=== PATIENT | male | born 1985 | race Caucasian/White ===

== ENCOUNTER 2025-01-28 10:33 | Emergency (ER) | payer MEDICARE, MEDICAID, SELFPAY ==
--- OUTSIDE RECORDS SUMMARY | 2025-01-26 09:40 | XMS_ITS | Encounter Summary ---
Author Organization [employer] Address [address] [place] [address] [facility] [place] [address] Care Team Providers Care Insurance Sales Specialist Name Role Phone Ana Armando MD Primary Care Provider [phone] Madai Swift MD Unavailable [phone] Lavinia Cagle ROTARY SHEAR OPERATOR Unavailable [phone] Peter Linares RN Unavailable Isadora Mcnamara RN Unavailable [phone] Luis García RN Unavailable Unavailable EstefaniWhitney COMPLEX CARE NURSE Unavailable [phone] Reason for Referral * Imaging (Routine) - Pending Review Specialty Diagnoses / Procedures Referred By Lc murphy Referred To Contact Radiology Diagnoses Frequent falls Sudden onset of severe headache Procedures CT Head w/o Contrast Ana Armando MD [address] [place] [address] Phone: tel: fax: Referral ID Status Reason Start Date Expiration Date V isits Requested Visits Authorized [id number] Pending Review 01/26/2025 01/26/2026 1 1 Reason for Visit * Reason Comments Dizziness Encounter Details Date Type Department Care Team ([facility] st Contact Info) Description 01/26/2025 9:40 AM EDT [address] [address] Ana Armando MD [address] [place] [address] Vertigo (Primary Dx); Frequent falls; Sudden onset of severe headache; Nausea Social History Tobacco Use Types Packs/Day Years Used Date Smoking Tobacco: Never Smokeless Tobacco: Never Alcohol Use Standard Drinks/Week Comments Never 0 (1 standard drink = 0.6 oz pur e alcohol) Depression Answer Date Recorded PHQ-9 Score 1 08/25/2024 Patient Health Questionnaire-9 Score 16 08/25/2024 Last PHQ-9: Questionnaire Data 1 0 08/25/2024 Housing Stability Answer Date Recorded What is your housing situation today? I am not s ure 03/10/[address] you li ve. Do you have problems with any of the following? I am not sure 03/10/2024 Food Insecurity Answer Date Recorded Within the past 12 months, y ou worried that your food would run out before you got money to buy more: Sometimes True 2023 Within the past 12 months,th e food you bought just didn't last and you didn't have enough money to get more: Sometimes True 03/10/2024 Transportation Answer Date Recorded In the past 12 months, has l ack of transportation kept you from medical appts, meetings, work or from getting things needed for daily living? I am not sure 02/25/2023 Utilities Answer Date Recorded In the past 12 months, has t he electric, gas, oil or water company threatened to shut off services in your home? I am not sure 03/10/2024 Depression Answer Date Recorded Patient Health Questionnaire-2 Score 1 08/25/2024 Internet Access Answer Date Recorded Internet Access Q1 I am not sure 03/10/2024 Internet Access Q2 Not on file 03/10/2024 Sex and Gender Information Value Date Recorded Sex Assigned at Male 05/14/2022 4:21 PM EST Legal Sex Male 4:09 PM EST Gender Identity Male 05/14/2022 4:16 PM EST Sexual Orientation Straight 05/15/2022 2: 26 PM EST documented as of this encounter Progress Notes * Ana Armando MD - 01/26/2025 9:40 AM EDT [facility] TELEHEALTH VISIT Name: Timothy Kramer : 1985 PCP: Ana Armando MD Pt Preferred Language: Citizen Of [place] [employer]im[employer] Services Used? No - Visit conducted in pt's language by this author REASON FOR TELEMEDICINE VISIT Chief Complaint Patient presents with Dizziness This visit was completed by: Telephone (Patient is not capable of or does not consent to the use ofvideo) HPI/ROS Timothy Kramer is a 39 y.o. male who would like to discuss Dizziness He is having symptoms of vertigo and headache He also get nauseas He has hope da headache for 3 days He has falls due to headache No ear pain No hearing loss He feels tired and nausea. He has a family history of headache, falls then this was a cancer in his mom. Review of Systems Physical Exam RESULTS (12 week lookback) No results found for this or any previous visit (from the past 12 weeks). SCREENINGS AND HM PHQ-2/9: No data recorded KARTHIKEYAN-7 Score: No data recorded Health Maintenance Due Topic Date Due HPV Vaccines (1 - Male 3-dose series) Never done Influenza Vaccine (1) 12/27/2024 COVID-19 Vaccine ( - season) 2024 Depression Monitoring 02/24/2025 SDOH Screening 03/10/2025 ASSESSMENT AND PLAN Assessment & Plan Vertigo New onset headache, vertigo, nause - I suspect migraine vs BPPV Will start treatment with oral and patch treatment for symptom control. Orders: scopolamine (Transderm-Scop) 1 MG/3DAYS patch 72 hour; Place 1 patch on the skin every 3rd (third) day. meclizine (Antivert) 25 MG tablet; Take 1 tablet (25 mg) by mouth if needed in the morning, at noon, and at bedtime for dizziness for up to 10 days. Frequent falls Orders: CT Head w/o Contrast; Future Sudden onset of severe headache Severe headache that wakes him up at night, he hope sa fam history of brain tumors. Will get CT of the head to r/o mass effect or hydrocephalous Orders: CT Head w/o Contrast; Future Nausea Orders: ondansetron ODT (Zofran-ODT) 8 MG disintegrating tablet; Take 1 tablet (8 mg) by mouth every 8 (eight) hours if needed for nausea or vomiting. No follow-ups on file. This visit lasted: 30 min Ana Armando MD 01/26/2025 documented in this encounter Miscellaneous Notes * Assessment & Plan Note - Ana Armando MD - 01/26/2025 9:40 AM EDTAssociated Problem(s): Frequent falls Orders: CT Head w/o Contrast; Future documented in this encounter Plan of Treatment Scheduled Orders Name Type Priority Associated Diagnoses Orde r Schedule CT Head w/o Contrast Imaging Routine Frequent falls Sudden onset of severe headache Expected: 01/26/2025 (Approximate), Expires: 01/26/2026 documented as of this encounter Goals Goal Patient Goal Type Associated Problems Recent Progress Patient-Stated? Author obtain housing in [facility] General Yes Ly Pal RN food assistance General Yes Ly Pal RN help with social security application General Yes Ly Pal RN obtain podiatry appt General Yes Ly Pal RN documented as of this encounter Visit Diagnoses Diagnosis Vertigo- Primary Dizziness and giddiness Frequent falls Sudden onset of severe headache Nausea Nausea alone documented in this encounter Additional Health Concerns Assessment Noted Time PHQ-9 Depression Total Score: 18 09/06/ 024 1:14 PM EDT documented as of this encounter Care Teams Insurance Sales Specialist Relationship Specialty Start Date End Date Ana Armando MD [address] [place] [address] PCP - General Family Medicine 02/13/24 Madai Swift MD [address] [place] [address] Family Physician Family Medicine 07/30/24 Lavinia Cagle CNP [address] [place] [address] Nurse Practitioner Family Medicine 07/30/24 Peter Linares, KARY [address] [place] [address] Registered Nurse 07/30/24 Isadora Mcnamara RN [address] [place] [address] Registered Nurse 07/30/24 Luis García, KARY Registered Nurse Family Medicine 07/30/24 Whitney Jara FNP [address] [place] [address] Nurse Practitioner Family Medicine 07/30/24 documented as of this encounter
--- NOTE | ~2025-01-28 | CT_ITS ---
EXAMINATION: CT HEAD WITHOUT CONTRAST CLINICAL INFORMATION: Headache and dizziness. COMPARISON: None available. TECHNIQUE: Contiguous axial imaging was performed from the skull base to vertex without intravenous administration of contrast. This CT examination was performed using dose optimization techniques as appropriate, variously including the following: *Automated exposure control *Adjustment of mA and/or kV according to patient size (this includes techniques or standardized protocols for targeted exams where dose is matched to indication/reason for exam; i.e. extremities or head) *Use of iterative reconstruction technique FINDINGS: There is no evidence of intracranial hemorrhage or extra-axial fluid collection. There is no mass effect, or edema. No CT evidence of acute territorial infarct. Ventricles, sulci, and cisterns are normal in size and configuration for patient age. No hydrocephalus. No midline shift. Negative hyperdense MCA sign. Negative insular ribbon sign. There are no white matter attenuation abnormalities. Normal pituitary. Globes and orbital contents image normally. No extracranial soft tissue abnormalities. Mild to moderate scattered mucosal thickening in the ethmoid sinuses. The remainder of the paranasal sinuses, mastoid air cells, and tympanic cavities are normally aerated. No suspicious bony abnormalities. There are no acute fractures evident. CT/CT head/brain wo IV con IMPRESSION: No acute intracranial abnormality. Electronically signed by: Kel Richardson MD 01/28/2025 11:57 AM EDT
[2025-01-28 10:43] VITALS: BP 125/73; PULSE 76; RESP 16; TEMP 36.4; O2SAT 97; BMI 28.8
--- NOTE | 2025-01-28 10:45 | ED.GENADULT ---
HPI - General Adult General Chief complaint: Dizziness Stated complaint: Syncope Time Seen by Provider: 01/28/25 11:57 History of Present Illness ED Provider: Gilbert LEE narrative: The patient is a 39-year-old male with no significant past medical history who says that for the past 3 days he has felt a sense of severe room spinning dizziness whenever he tries to move around. He has had a headache associated with this. No fever. No focal numbness or weakness in his extremities. No bowel or bladder control symptoms. No visual symptoms. No trauma. 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 He commutes from [place]. Related Data Previous Rx's ?Medication ?Instructions ?Recorded acetaminophen 500 mg capsule 1,000 mg (2 x 500 mg) PO Q8H PRN 01/28/25 fever or pain #14 caps ibuprofen 400 mg tablet 400 mg PO Q6H PRN pain #14 tabs 01/28/25 meclizine 25 mg tablet 25 mg PO TID PRN dizziness #20 tabs 01/28/25 ondansetron 4 mg disintegrating 4 mg PO Q6H PRN nausea and 01/28/25 tablet vomiting #10 tabs Allergies Allergy/AdvReac Type Severity Reaction Status Date / Time No Known Allergies Allergy Verified 01/28/25 10:46 Review of Systems Review of Systems: Yes all other systems are reviewed and are negative Physical Exam ED Vital Signs: Vital Signs - 24 hr 01/28/25 10:43 01/28/25 12:06 01/28/25 12:58 Temperature 97.6 F 98.2 F Pulse Rate 76 64 64 Respiratory Rate 16 Blood Pressure 125/73 120/78 114/72 Pulse Oximetry 97 98 Oxygen Delivery Method Room Air Room Air 01/28/25 12:58 01/28/25 12:59 01/28/25 14:49 Temperature Pulse Rate 70 69 69 Respiratory Rate Blood Pressure 111/69 108/78 108/78 Pulse Oximetry 95 Oxygen Delivery Method 01/28/25 16:05 Temperature 98.7 F Pulse Rate 69 Respiratory Rate 16 Blood Pressure 108/78 Pulse Oximetry 95 Oxygen Delivery Method Room Air BMI result Body Mass Index 28.8 Const Other: The patient is a 39-year-old male. He looks as though he is ordinarily healthy. He looks somewhat apprehensive but not in acute distress. HENMT Other: Face is symmetrical. Tongue is midline. Mucous membranes moist. Posterior pharynx is normal. Eyes General: appearance normal, both eyes and all related structures Visual Hammond: normal visual hammond by confrontation Alignment and Position: alignment normal Eyelids: Yes eyelids normal Conjunctivae: conjunctivae normal Sclerae: sclerae normal Pupils: Equal, round and reactive pupils present EOM: EOMs intact bilaterally (Possibly some slight nystagmus with leftward gaze.) Neck Neck: Yes normal visual inspection, Yes full ROM and Yes no lymphadenopathy Resp Effort & Inspection: normal respiratory effort Auscultation: clear to auscultation bilaterally Cardio Rate: regular rate Rhythm: regular rhythm Heart sounds: S1 normal heart sound present and S2 normal heart sound present GI Other: Abdomen is soft and nontender Skin Other: The skin is dry and unremarkable Neuro Other: The patient is awake and alert with a normal mental status. Pupils are round, equal, and reactive to light, extraocular movements are intact although there may be some slight nystagmus with leftward gaze. No vertical nystagmus. Visual hammond are intact to confrontation. Face is symmetrical. No facial droop. Tongue is midline. Speech is normal and appropriate. He has 5/5 strength in all 4 extremities. Finger-nose is normal. Heel-barron is normal. The patient seems to be experiencing significant dizziness when he changes position however. With the Greg-Hallpike maneuver he seemed to experience symptoms when his head was turned to the left. Cranial nerves: Yes Equal, round and reactive pupils present Extrem Other: There is no calf swelling or tenderness. No asymmetry. No peripheral edema. Course Course Course Narrative: This is a rapid medical exam performed by Fariba Giles NP: Additional HPI, ROS, PE not included below will be deferred to primary provider. Patient is a 39y/o M presenting from for evaluation of headache and constant dizziness x 3 days, fell yesteday due to dizziness. States mother had sudden due to either aneurism or brain tumor. Plan: CT head, EKG, labs Medications Administered Discontinued Medications Generic Name Dose Route Start Last Admin Trade Name Freq PRN Reason Stop Dose Admin Acetaminophen 975 mg 01/28/25 12:41 01/28/25 12:52 Acetaminophen 325 Mg Tablet PO 01/28/25 12:42 975 mg ONCE ONE Administration Ibuprofen 400 mg 01/28/25 12:41 01/28/25 12:52 Ibuprofen 400 Mg Tablet PO 01/28/25 12:42 400 mg ONCE ONE Administration Medical Decision Making Medical Decision Making [facility] Narrative: The patient is a 39-year-old male who presents with a proximally 3 days of room spinning dizziness which is provoked by changes in movement of his head. Clinically this seems to be a case of benign positional vertigo. He has a negative head CT. Other labs are unremarkable. Vital signs are unremarkable. I consulted Physical therapy regarding a case of what I suspected as positional vertigo. Physical therapy administered Liban maneuvers to the patient. He has had improvement in his symptoms. He was feeling able to walk. He will be discharged. I have given the physical therapist a handwritten prescription for outpatient physical therapy for this vertigo syndrome. The patient will be given the contact information for outpatient physical therapy. I do not know if this prescription order will be considered valid. The patient has a primary care doctor in the [facility]. He is encouraged to contact his PCP for an order as an outpatient as well. Also for follow up. The patient will be discharged additionally with a prescriptions for ibuprofen and acetaminophen for his headache, ondansetron for any nausea, and also meclizine. He should return if worse. Lab Data 01/28/25 10:57 01/28/25 10:57 Labs: Lab Results 01/28/25 01/28/25 Range/Units 10:57 13:01 WBC 9.5 (4.8-10.8) X10*3/uL RBC 5.27 (4.60-5.80) X10*6/uL Hgb 12.4 L (14.0-18.0) g/dl Hct 38.2 L (42.0-52.0) % MCV 72.5 L (80.0-98.0) fL MCH 23.5 L (27.0-33.0) pg MCHC 32.5 (31.0-36.0) g/dl RDW 16.0 (11.0-16.0) % Plt Count 196 (160-400) X10*3/uL MPV 10.8 (9.4-12.4) fL Immature Gran % (Auto) 1.7 H (0.0-0.4) % Neut % (Auto) 67.1 (45-73) % Lymph % (Auto) 20.1 (20-40) % [place] % (Auto) 7.4 (2-11) % Eos % (Auto) 3.2 (0-4) % Baso % (Auto) 0.5 (0-2) % Lymph # (Auto) 1.9 (1.2-4.9) X10*3/uL [place] # (Auto) 0.7 (0.1-1.2) X10*3/uL Eos # (Auto) 0.3 (0.0-0.4) X10*3/uL Baso # (Auto) 0.1 (0.0-0.2) X10*3/uL Abs Immat Gran (auto) 0.16 H (0.00-0.03) X10*3/uL Absolute Neuts (auto) 6.3 (2.0-8.3) x10*3/uL Absolute Nucleated RBC 0.000 (0.0-0.012) X10*3/uL Nucleated RBC % (auto) 0.0 (0.0-0.2) /100WBC PT 11.8 (10.9-12.4) SEC INR 1.0 (0.9-1.1) Sodium 140 (135-145) mmol/L Potassium 3.9 (3.3-5.1) mmol/L Chloride 111 H (96-108) mmol/L Carbon Dioxide 24 (22-29) mmol/L Anion Gap 9 L (12-20) BUN 15 (9-16) mg/dL Creatinine 0.80 (0.5-1.4) mg/dL Estim Creat Clear Calc 139.1 Estimated GFR > 60 Random Glucose 96 (60-115) mg/dL Calcium 8.5 (8.4-10.2) mg/dL Magnesium 2.3 (1.6-2.6) mg/dL Total Bilirubin 0.7 (0.0-1.0) mg/dL AST 20 (5-37) U/L ALT 17 (0-40) U/L Alkaline Phosphatase 55 (39-117) U/L Troponin I High Sens < 2.7 (<3.5-35.0) ng/L Total Protein 7.1 (6.5-8.0) g/dL Albumin 4.5 (3.5-5.0) g/dL Urine Color Yellow Urine Appearance Clear Urine pH 5.5 (5.0-9.0) Ur Specific [place] 1.010 (1.005-1.025) Urine Protein Negative (Neg-Trace) mg/dL Urine Glucose (UA) Negative (Negative) mg/dL Urine Ketones Negative (Negative) mg/dL Urine Blood Negative (Negative) Urine Nitrite Negative (Negative) Ur Leukocyte Esterase Negative (Negative) Urine RBC 0-2 (0-2) /HPF Urine WBC 0-5 (0-5) /HPF Ur Squamous Epith Cells 0-2 (0-2) /HPF Urine Bacteria None Seen (None Seen) Hyaline Casts 0-2 (0-2) /LPF Independent Interpretation I performed an independent interpretation of an: EKG Interpretation: EKG at 1051 shows normal sinus rhythm at 71 beats per minute. it is a normal EKG Discharge Plan Discharge Clinical Impression: Benign paroxysmal positional vertigo Patient Disposition: Home, Self-Care Instructions: Vertigo (ED) Additional Instructions: I believe you have a condition that we call benign paroxysmal positional vertigo. This is a dysfunction of a portion of the inner ear. The inner ear is the body's gyroscope. Your CAT scan of the head was normal. You were seen by physical therapy. You were put through maneuvers intended to improve your vertigo. You may need additional care from physical therapy. An order has been placed with our physical therapy office which I hope will be considered valid for insurance purposes so that you can be seen there. Please call the physical therapy office on Friday to see if you can set up this appointment. Call early in the morning. Prescriptions has been sent to your pharmacy for acetaminophen and ibuprofen which you may use for mild headache. Also ondansetron which you may use as needed for nausea. Also meclizine, a medication that can help with dizziness to some degree. Please contact your regular doctor near [place] to arrange a prompt follow up appointment as well. Return to the emergency room if you feel significantly worse. Prescriptions: New ibuprofen 400 mg tablet 400 mg PO Q6H PRN (Reason: pain) Qty: 14 0RF ondansetron 4 mg tablet,disintegrating 4 mg PO Q6H PRN (Reason: nausea and vomiting) Qty: 10 0RF acetaminophen 500 mg capsule 1,000 mg PO Q8H PRN (Reason: fever or pain) Qty: 14 0RF meclizine 25 mg tablet 25 mg PO TID PRN (Reason: dizziness) Qty: 20 0RF Referrals: Physical Therapy - [facility] [Outside] Interventions: ED Discharge Assessment Last Done: 01/28/25 16:05 Discharge Date/Time: 01/28/25 16:06 Print Language: Citizen Of [place]
--- NOTE | 2025-01-28 10:46 | ECG_ITS ---
Test Reason : Syncopal Episode Blood Pressure : */* mmHG Vent. Rate : 71 BPM Atrial Rate : 71 BPM P-R Int : 138 ms QRS Dur : 82 ms QT Int : 372 ms P-R-T Axes : 61 27 17 degrees QTcB Int : 404 ms Normal sinus rhythm Normal ECG No previous ECGs available Referred By: Marlys Giles Electronically Signed By: MARCELA WHATLEY
[2025-01-28 11:01] LABS: MANUAL DIFF FLAG NO
[2025-01-28 11:09] LABS: Hematocrit 38.2 % (42.0-52.0); Hemoglobin 12.4 g/dl (14.0-18.0); Imm Gran Abs Auto 0.16 X10*3/uL (0.00-0.03); Imm Gran Pct Auto 1.7 % (0.0-0.4); Lymphocytes Absolute Auto 1.9 X10*3/uL (1.2-4.9); Mean Corpuscular HGB Conc 32.5 g/dl (31.0-36.0); Mean Corpuscular Hemoglobin 23.5 pg (27.0-33.0); Mean Corpuscular Volume 72.5 fL (80.0-98.0); NRBC Abs Auto 0.000 X10*3/uL (0.0-0.012); NRBC Pct Auto 0.0 /100WBC (0.0-0.2); Platelet Count 196 X10*3/uL (160-400); Red Blood Count 5.27 X10*6/uL (4.60-5.80); White Blood Count 9.5 X10*3/uL (4.8-10.8)
[2025-01-28 11:13] LABS: INTERNATIONAL NORM RATIO 1.0 (0.9-1.1); Prothrombin Time 11.8 SEC (10.9-12.4)
[2025-01-28 11:16] LABS: Alanine Aminotransferase 17 U/L (0-40); Albumin Level 4.5 g/dL (3.5-5.0); Alkaline Phosphatase 55 U/L (39-117); Anion Gap 9 (12-20); Aspartate Amino Transferase 20 U/L (5-37); Blood Urea Nitrogen 15 mg/dL (9-16); Calcium 8.5 mg/dL (8.4-10.2); Carbon Dioxide 24 mmol/L (22-29); Chloride 111 mmol/L (96-108); Creatinine Clr Calc Pharmacy 139.1; Estimated Glomerular Filt Rate > 60; Magnesium 2.3 mg/dL (1.6-2.6); Potassium 3.9 mmol/L (3.3-5.1); Sodium 140 mmol/L (135-145); Total Protein 7.1 g/dL (6.5-8.0)
[2025-01-28 11:28] LABS: Troponin-I High Sensitivity < 2.7 ng/L (<3.5-35.0)
[2025-01-28 12:06] VITALS: BP 120/78; PULSE 64; TEMP 36.8; O2SAT 98
[2025-01-28 12:58] VITALS: BP 111/69; BP 114/72; PULSE 64; PULSE 70
[2025-01-28 12:59] VITALS: BP 108/78; PULSE 69
[2025-01-28 13:12] LABS: Appearance Urine Clear; Glucose Urine UA Negative (Negative); PH 5.5 (5.0-9.0); Specific Gravity - Urine 1.010 (1.005-1.025)
--- OUTSIDE RECORDS SUMMARY | 2025-01-28 13:44 | XMS_ITS | Encounter Summary ---
Author Organization [email or web address] [facility] Address [address] [place] [address] Phone Care Team Providers Care Pyridine Operator Name Role Phone Ana Armando MD Primary Care Provider Encounter Details Date Type Department Care Team (Late st Contact Info) Description 07/22/2020 Transcribe Orders [facility] [address] [place] [address] Ana Armando MD [address] [place] [address] [email or web address] Social History Tobacco Use Types Packs/Day Years Used Date Smoking Tobacco: Never Sex and Gender Information Value Date Recorded Sex Assigned at Male 11/24/2021 12:45 AM EDT Legal Sex Male 1:42 PM EDT Gender Identity Male 11/24/2021 12:45 AM EDT Sexual Orientation Don't know 11/24/2021 12 :45 AM EDT documented as of this encounter Plan of Treatment Not on file documented as of this encounter Visit Diagnoses Not on filedocumented in this encounter Care Teams Pyridine Operator Relationship Specialty Start Date End Date Ana Armando MD PCP - General Family Medicine 10/16/17 documented as of this encounter Additional Source Comments The information contained in this document represents components of the legal health record. It is not the complete legal health record.[facility]
--- OUTSIDE RECORDS SUMMARY | 2025-01-28 13:44 | XMS_ITS | Encounter Summary ---
Author Organization [employer] Address [address] [place] [address] Care Team Providers Care Waiter/Waitress Buffet Name Role Phone Ana Armando MD Primary Care Provider [phone] Joan Shah Unassigned Primary Care Provider Unavailable Ana Armando MD Primary Care Provider [phone] Madai Swift MD Unavailable [phone] Lavinia Cagle CNP Unavailable [phone] Whitney Jara FIRER TUNNEL KILN Unavailable [phone] Peter Linares RN Unavailable Isadora Mcnamara RN Unavailable [phone] Luis García RN Unavailable Unavailable Whitney Jara FIRER TUNNEL KILN Unavailable [phone] Reason for Visit * Reason Onset Date Comments Appointment Request 12/12/2022 Foot Pain 12/12/2022 Foot Problem 12/12/2022 Encounter Details Date Type Department Care Team (Late st Contact Info) Description 12/12/[address] [address] Ana Armando MD [address] [place] [address] [phone] Appointment Request; Foot Pain; Foot Problem Social History Tobacco Use Types Packs/Day Years Used Date Smoking Tobacco: Never Smokeless Tobacco: Never Alcohol Use Standard Drinks/Week Comments Never 0 (1 standard drink = 0.6 oz pur e alcohol) Sex and Gender Information Value Date Recorded Sex Assigned at Male 05/14/2022 4:21 PM EST Legal Sex Male 4:09 PM EST Gender Identity Male 05/14/2022 4:16 PM EST Sexual Orientation Straight 05/15/2022 2: 26 PM EST documented as of this encounter Miscellaneous Notes * Telephone Encounter - Laurie Jacobsen CMA - 12/16/2022 2:52 PM EDT Pt notify . * Telephone Encounter - Ana Armando MD - 12/16/2022 2:38 PM EDT This is a chronic issue, pt can wait until appt. Thank you Ana Armando MD * Telephone Encounter - Luis García RN - 12/12/2022 10:52 AM EDT -spoke with pt, offered sooner appt with another provider which pt declines -pt requesting to be called if Dr Boris Grande has cancellation -will route to Ana/Robyn nath opening prior to 01/01 documented in this encounter Plan of Treatment Not on file documented as of this encounter Visit Diagnoses Not on filedocumented in this encounter Care Teams Waiter/Waitress Buffet Relationship Specialty Start Date End Date Ana Armando MD [address] [place] [phone] PCP - General Family Medicine 05/15/22 10/16/23 Huy ShahDavie Unassigned PCP - General 10/17/23 Ana Armando MD [address] [place] [phone] PCP - General Family Medicine 02/13/24 Madai Swift MD [address] [place] [address] Family Physician Family Medicine 07/30/24 Lavinia Cagle CNP [address] [place] [address] Nurse Practitioner Family Medicine 07/30/24 Whitney Jara FNP [address] [place] [address] Family Physician Family Medicine 07/30/24 07/30/24 Peter Linares RN [address] [place] [address] Registered Nurse 07/30/24 Isadora Mcnamara, KARY [address] [place] [address] Registered Nurse 07/30/24 Luis García, RN Registered Nurse Family Medicine 07/30/24 Whitney Jara FNP [address] [place] [address] Nurse Practitioner Family Medicine 07/30/24 documented as of this encounter
--- OUTSIDE RECORDS SUMMARY | 2025-01-28 13:44 | XMS_ITS | Encounter Summary ---
Author Organization [employer] Address [address] [place] [address] 7 [place] [address] Care Team Providers Care Emergency Department Coordinator Name Role Phone Ana Armando MD Primary Care Provider [phone] Madai Swift MD Unavailable [phone] Lavinia Cagle FELLER HAND Unavailable [phone] Whitney Jara EDITOR INDEX Unavailable [phone] Peter Linares RN Unavailable Isadora Mcnamara RN Unavailable [phone] Luis García RN Unavailable Unavailable Whitney Jara EDITOR INDEX Unavailable [phone] Reason for Visit * Reason Comments Med Refill Encounter Details Date Type Department Care Team (Late st Contact Info) Description 07/10/[address] [address] Ana Armando MD [address] [place] [address] Chronic bilateral low back pain with bilateral sciatica Social History Tobacco Use Types Packs/Day Years Used Date Smoking Tobacco: Never Smokeless Tobacco: Never Alcohol Use Standard Drinks/Week Comments Never 0 (1 standard drink = 0.6 oz pur e alcohol) Depression Answer Date Recorded Patient Health Questionnaire-9 Score 16 07/05/2024 Patient Health Questionnaire-9 Score 16 07/05/2024 Last PHQ-9: Questionnaire Data 3 0 07/05/2024 Housing Stability Answer Date Recorded What is [...] Answer Date Recorded Patient Health Questionnaire-2 Score 3 07/05/2024 Internet Access Answer Date Recorded Internet Access [...] encounter Miscellaneous Notes * Telephone Encounter - Robyn Dobson - 07/12/2024 9:00 AM EDT Rx was discontinued please review. documented in this encounter Plan of Treatment Not on file documented as of this encounter Goals Goal Patient Goal Type Associated Problems Recent Progress Patient-Stated? Author obtain housing in [facility] General Yes Ly Pal, KARY food assistance General Yes Ly Pal, RN help with social security application General Yes Ly Pal, RN obtain podiatry appt General Yes Ly Pal RN documented as of this encounter Visit Diagnoses Diagnosis Chronic bilateral low back pain with bilateral sciatica documented in this encounter Additional Health Concerns Assessment Noted Time PHQ-9 Depression Total Score: 18 024 1:14 PM EDT documented as of this encounter Care Teams Emergency Department Coordinator Relationship Specialty Start Date End Date Ana Armando MD [address] [place] [address] PCP - General Family Medicine 02/13/24 Madai Swift MD [address] [place] [address] Family Physician Family Medicine 07/30/24 Lavinia Cagle CNP [address] [place] [address] Nurse Practitioner Family Medicine 07/30/24 Whitney Jara FNP [address] [place] [address] Family Physician Family Medicine 07/30/24 07/30/24 Peter Linares, KARY [address] [place] [address] Registered Nurse 07/30/24 Isadora Mcnamara, KARY [address] [place] [address] Registered Nurse 07/30/24 Luis García, KARY Registered Nurse Family Medicine 07/30/24 Whitney Jara FNP [address] [place] [address] Nurse Practitioner Family Medicine 07/30/24 documented as of this encounter
--- OUTSIDE RECORDS SUMMARY | 2025-01-28 13:44 | XMS_ITS | Clinical Summary ---
Author Organization [facility] Address [address] [place] [address] Care Team Providers Care Accounting Auditor Name Role Phone Pcp, Katherine Correa Primary Care Provider Unavailable Source Comments PLEASE NOTE, if this patient is a minor, it may be UNLAWFUL to discuss sensitive information that is contained in these records (such as FAMILY PLANNING, MENTAL HEALTH or SUBSTANCE ABUSE) with the minor patient's parent or other person without the patient's specific authorization.[facility] Allergies No known active allergies Medications DENTAGEL 1.1 % gel Place in mouth once daily 56 g 11 1 Active triamcinolone acetonide (KENALOG) 0.1 % pasteIndications :Aphthous ulcer of mouth Place in mouth 2 (two) times daily 5 g 11 2 Active ibuprofen 800 mg tablet TAKE 1 TABLET BY MOUTH THREE TIMES A DAY NEEDED FOR PAIN 90 Tablet 5 2 Active PROAIR HFA 90 mcg/actuation inhalerIndicatio ns:Wheezing INHALE 2 PUFFS INTO THE LUNGS EVERY 4 TO 6 (FOUR TO SIX) HOURS 8.5 g 4 2 Active gabapentin (NEURONTIN) 400 mg capsule TAKE 1 CAPSULE BY MOUTH THREE TIMES A DAY 90 Capsule 3 2 Active cyclobenzaprine (FLEXERIL) 5 mg tabletIndication s:Chronic foot pain, unspecified laterality TAKE 1 TABLET BY MOUTH NIGHTLY AT BEDTIME NEEDED FOR MUSCLE SPASMS OR OTHER REASON (PAIN) 90 Tablet 1 2 Active predniSONE 50 mg tabletIndication s:Acute bilateral low back pain with bilateral sciatica TAKE 1 TABLET BY MOUTH EVERY MORNING WITH FOOD FOR 7 DAYS 7 Tablet 1004/202 2 Active diclofenac sodium (VOLTAREN) [address] tabletIndication s:Acute bilateral low back pain with bilateral sciatica TAKE 1 TABLET BY MOUTH TWICE A DAY NEEDED FOR PAIN 28 Tablet 1 2 Active ipratropium bromide (ATROVENT) 21 mcg (0.03 %) nasal sprayIndications :Acute rhinitis INSTILL 2 SPRAYS INTO THE NOSTRIL(S) 2 (TWO) TIMES DAILY 30 mL 11 2 Active tamsulosin (FLOMAX) 0.4 mg 24 hr capsuleIndicatio ns:Nocturia TAKE 1 CAPSULE BY MOUTH EVERY DAY 90 Capsule 2 Active neomycin-polymyx in-HC (CORTISPORIN) 3.5-10,000-1 mg/mL-unit/mL-% otic solutionIndicati ons:Acute otitis externa of both ears, unspecified type INSTILL 4 DROPS INTO BOTH EARS FOUR TIMES DAILY 10 mL 3 3 Active ketoconazole (NIZORAL) 2 % creamIndications :Tinea pedis of both feet APPLY TOPICALLY TO AFFECTED AREA EVERY DAY 30 g 5 4 Active Active Problems Problem Noted Date Diagnosed Date Inadequate housing 05/08/2021 Overview (05/08/2021): I explained to the patient that the [facility] is a non- profit agency that has committed to helping [facility] patients with problems related to housing, food, and unemployment benefits. They can serve patients in Citizen Of [place] or [place]. I asked permission to release the patient s name, address, and phone number to the [facility] using their on-line submission form. [email or web address] The patient agreed with this release of their information: YES Assessment & Plan (05/08/2021 10:02 AM EST): I explained to the patient that the [facility] is a non- profit agency that has committed to helping [facility] patients with problems related to housing, food, and unemployment benefits. They can serve patients in Citizen Of [place] or [place]. I asked permission to release the patient s name, address, and phone number to the [facility] using their on-line submission form. [email or web address] The patient agreed with this release of their information: YES Food insecurity 05/08/2021 HLD (hyperlipidemia) 07/31/2020 Overview (12/25/2020): Lab Results Component Value Date TRIGLYC 118 10/02/2020 CHOL 227 (H) 10/02/2020 HDL 30 (L) 10/02/2020 LDL 173 (H) 10/02/2020 NONHDL 197 10/02/2020 Assessment & Plan (12/25/2020 6:24 PM EDT): Improving with life style. No need for statin Will repeat in 1 year Assessment & Plan (10/05/2020 8:29 PM EDT): No indication for statin. cousneled about low fat diet. Assessment & Plan (08/16/2020 1:43 PM EDT): No meds needed. Will start low anmimal fat diet. He also does not exercise, we discussed the improtance of this. Acute bilateral low back pain with bilateral sci atica 06/28/2020 Overview (08/16/2020): 08/16/2020: xray was neg 06/28/2020: acute onset, disabiling him Assessment & Plan (08/16/2020 1:43 PM EDT): Ongoing back pain. xray was neg Suspect musclar pain Encouraged the pt do do some core exercises. Assessment & Plan (07/12/2020 9:17 AM EDT): Worsening despite treatment, he could not complete PT Will get xray of the back. Assessment & Plan (06/28/2020 8:47 AM EST): worseing pain that is resistent to nsaids. I suspect disc herniation and/or muscle spasm Will start prednsione. 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 He is afraid fo the future. Assessment & Plan (10/05/2020 8:29 PM EDT): This is impacting patient quality of life. Cane given today. Supported the pt. encourage to seek suport groups. Current mild episode of arron r depressive disorder without prior episode 01/04/2019 Overview (01/04/2019): Has significant worry over health status, and managing condition while working for family. Would like to discuss with Turkish speaking therapist Assessment & Plan (12/25/2020 6:23 PM EDT): Stable. Does not want meds. delcined BH for now. No SI Or HI Assessment & Plan (10/05/2020 8:28 PM EDT): Worsening dperession due to health and foot pain. He declined meds or BH. No SI or HI Assessment & Plan (06/22/2020 4:48 PM EST): Worsening due to back and foot pain. He feels he will end up in wheel chair soon. Declined BH Assessment & Plan (12/30/2019 7:27 PM EDT): Worsening mood due to inabiltiy to work and have an income to support family He is also fearful of ending up like is father in a wheel chair permanently. Also he is fearful of his children having the guerita foot condition. 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 Considering SSDI 08/09/2019: seeing ortho at [facility], they recommend surgery. Patient is very hesitant and wants to wait. 05/2019: MRI 1. Possible split tear involving the retromalleolar peroneus longus tendon with intrasheath subluxation. Associated mild reactive bone marrow edema along the lateral malleolus. 2. Tenosynovitis involving the peroneus longus, flexor digitorum longus and flexor hallucis longus tendons. 3. Chronic low-grade anterior talofibular ligament sprain. 4. Pes cavus deformity. Podiatry: Dr Vicente Otoole's custom orthotics, consider surgical intervention if pain is severe Assessment & Plan (05/08/2021 10:03 AM EST): Worsening foot pain due to congentical high arches, he cannto work nor function normally at home. He is seeking second opinion by ortho I wll refer to [facility] ortho. He [facility] tneed to be seen by pedi ortho for this condition Assessment & Plan (08/16/2020 1:44 PM EDT): Sx of pain are improving with PT, needs weekly sessions. This is not a curable disease. Continue same treatment for chronic pain Assessment & Plan (05/10/2020 5:32 PM EST): Worsening pain and disability due to foot deformity He cannot get gainful emplyement due to thsi Documentation dont for support. Assessment & Plan (02/14/2020 6:45 PM EDT): Worsening, pain. He cannot walk due to pain. Needs a cane. Encouraged him to apply for SSDI Assessment & Plan (01/12/2020 5:47 PM EDT): Severe disability causing pain and difficulty walking He needs to rest and elevate his legs constantly. Form for SSDI done today Assessment & Plan (12/30/2019 7:25 PM EDT): Worsening deformity of the feet b/l He cannot walk without a cane now He is applying for SSDI Document sent via email and via regular mail today Assessment & Plan (12/15/2019 1:41 PM EDT): Worsening pain over the feet, MRI revealed ligamentous tears and more. Ortho recommended surgery but patient declined due to fears. He leno continue to think about it He can no longer maintain gainful employment. Considering SSDI Assessment & Plan (08/09/2019 4:30 PM EDT): Pain is worseing, seeing ortho at [facility], they recommend surgery. Patient is very hesitant and wants to wait. Assessment & Plan (01/04/2019 4:26 PM EDT): Reviewed podiatry rec's including wearing orthotics most of the time while wearing supportive shoes Discussed considerations for surgical intervention, this presents significant stress and is interested in therapy to discuss further. Referral placed for indonesian speaking therapost Assessment & Plan (10/01/2018 8:56 PM EDT): There is chronic pain over the feet. Will refer to ortho at [facility] for second opinion. Aphthous ulcer of mouth 08/22/2015 Resolved Problems Problem Noted Date Diagnosed Date Resolved Date Class 1 obesity due to exces s calories without serious comorbidity with body mass index (BMI) of 30.0 to 30.9 in adult 07/12/2020 Helicobacter positive gastritis 09/29/2015 04/05/2020 Male pattern alopecia 08/22/20152020 Immunizations Immunization Administration Dates Next Due Flu, Cell Culture based, Pre servative Free, 6m+, Flucelvax 04/22/2018 Flu, Preservative Free 01/19/2015,03/18/2014 HEP B, PED/ADOL ([id number]/RECOMBIVAX-PEDS) 03/18/2014,10/13/2013,09/08/2013 Hep B (for Immunosuppressed) 3 Dose 03/18/2014,0 10/13/2013,09/08/2013 Hep B, Adult/Adol ([id number]-A-FJUAI/RECOMBIVAX-ADULT) 03/18/2014,10/13/2013,09/08/2013 Hep B, Unspecified 03/18/2014,10/13/2013, 014 INFLUENZA, SEASONAL, INJECTABLE 02/11/2017,01/19,03/18/2014 INFLUENZA, UNSPECIFIED 04/22/2018 MMR (MMR II/Priorix) 10/13/2013,09/08/2013 Moderna COVID-19 Vaccine, re d cap blue label, 12+ Primary Series 08/19/2020,07/22/2020 TDAP 09/08/2013 Td (adult) unspecified 03/18/2014,10/13/2013 Td (adult),2 Lf tetanus toxo id (TDVAX), preservative free 03/18/2014,10/13/2013 Varicella (Varivax), Live Vaccine 12/14/2014,,06/01/2014 Social History Tobacco Use Types Packs/Day Years Used Date Smoking Tobacco: Never Smokeless Tobacco: Never Alcohol Use Standard Drinks/Week Comments Not Asked 0 (1 standard drink = 0.6 oz pur e alcohol) Social Connections Answer Date Recorded Connectedness 0 01/03/2024 Financial Resource Strain Answer Date R ecorded Financial Resource Strain 0 2018 Stress Answer Date Recorded Stress 0 12/20/2018 Physical Activity Answer Date Recorded Physical Activity 0 12/20/2018 Food Insecurity Answer Date Recorded Food 0 10/02/2020 Transportation Needs Answer Date Record ed Transportation 0 10/02/2020 Housing Stability Answer Date Recorded Housing 0 10/02/2020 Safety and Environment Answer Date Jay rded Safety 0 12/20/2018 Utilities Answer Date Recorded Utilities 0 10/02/2020 Employment Answer Date Recorded Employment 0 12/20/2018 Sex and Gender Information Value Date Recorded Sex Assigned at Male 08/09/2019 9:04 PM PDT Legal Sex Male 5:57 AM PST Gender Identity Male 08/09/2019 9:04 PM PDT Sexual Orientation Not on file Last Filed Vital Signs Vital Sign Reading Time Taken Comments Blood Pressure 118/78 12/25/2020 2:04 PM EDT Pulse 90 12/25/2020 2:04 PM EDT Temperature 36.6 C (97.8 F) 12/25/2020 2:04 PM EDT Respiratory Rate 20 12/25/2020 2:04 PM EDT Oxygen Saturation 98% 01/04/2019 3:26 PM EDT Inhaled Oxygen Concentration - - Weight 82.6 kg (182 lb) 12/25/2020 2:04 PM EDT Height 170.2 cm (5' 7 ) 12/25/2020 2:04 PM EDT Body Mass Index 28.51 12/25/2020 2:04 PM EDT Plan of Treatment Health Maintenance Due Date Last Done Comments Anxiety Screening 1987 Tobacco Screening 1987 Medicare Annual Wellness Visit 07/17/2005 Imm-Pneumococcal (1 of 2 - PCV) 07/17/2006 Imm-HPV (1 - Risk 3-dose SCD M series) 07/17/2014 Hypertension Screening (#1) 12/25/2023 Imm-DTaP/Tdap/Td (6 - Td or Tdap) 03/18/2024 03/18/2014, 03/18/2014, 10/13/2013, Additional history exists Alcohol and Drug Screen 04/28/2024 06/22/19, 02/14/2020, 02/14/2020, Additional history exists [id number] ( season) 2024 05/09/2021, 08/19/2020, 07/22/2020 Imm-Influenza (#1) 2024 04/22/2018, 1 06/23/2017, 02/11/2017, Additional history exists Diabetes Screening 01/06/2026 01/06/2023, 0 11/14/2021, 11/14/2021, Additional history exists Imm-Hepatitis B Completed 03/18/2014, 02/27, 03/18/2014, Additional history exists HIV Screening Completed 08/22/2015 Hepatitis C Screening Completed 03/02/2018, 016 Depression Monitoring Discontinued Procedures Procedure Name Priority Date/Time Associated Diagnosis Comments COMPREHENSIVE METABOLIC PANEL Routine 11/14/2021 12:05 PM EDT Recurrent tonsillitis HEPATITIS C ANTIBODY WITH RFLX TO HCV RNA PCR W/RFLX TO GENOTYPE Routine 03/02/2018 5:47 PM EST Exposure to STD HIV 1/2 AG/AB Routine 08/22/2015 3:12 PM EDT Mouth ulcer from Last 3 Months or Most Recently Relevant to Health Maintenance Results * COMPREHENSIVE METABOLIC PANEL (11/14/2021 12:05 PM EDT) SODIUM 140 136 - 145 mmol/L [facility] POTASSIUM 4.3 3.6 - 5.1 mmol/L [facility] CHLORIDE 103 98 - 107 mmol/L [facility] CARBON DIOXIDE 25 22 - 32 mmol/L [facility] BUN 13 6 - 20 mg/dL [facility] CREATININE 1.01 0.6 - 1.3 mg/dL [facility] GLUCOSE 85 65 - 99 mg/dL [facility] ALBUMIN 5.1 3.5 - 5.2 g/dL [facility] TOTAL PROTEIN 7.9 6.1 - 8.1 g/dL [facility] CALCIUM 10.1 8.9 - 10.3 mg/dL [facility] ALK PHOS 81 40 - 130 U/L [facility] TOTAL BILIRUBIN 0.6 0.0 - 1.2 mg/dL [facility] AST 24 15 - 41 U/L [facility] ALT 20 10 - 50 U/L [facility] GLOBULIN 2.8 1.9 - 4.1 g/dL [facility] EGFR 100 60 - 128 mL/min/1.7 3m2 [facility] Comment: Estimated glomerular filtration rate calculated using the CKD-EPI refit equation. ANION GAP 12 3 - 17 mmol/L [facility] Comment:Processed and/or per formed at [address] [place] [address] Blood Blood / Unknown 11/14/2021 1 2:05 PM EDT Ana Armando MD LAB - BLOOD DRAW Final Result [address] [address], * HEPATITIS C ANTIBODY W/RFLX TO VIRAL LOAD W/RFLX TO GENOTYPE (03/02/2018 5:47 PM EST) HEPATITIS C ANTIBODY NON-REACTI VE NON-REACT DANIA [facility] SIGNAL TO CUT-OFF 0.01 <1.00 [facility] Blood specimen (specimen) Blood / Unknown 03/02/2018 5:47 PM EST 03/03/2018 5:09 AM EST Narrative [facility] - 03/03/2018 4:45 PM EST Performing Organization Information: [[id number]] : [facility], [address] [place] [address],[address], [place] [address] Director: ELO ROBERT MD Ana Armando MD LAB - BLOOD DRAW Edited Result - Final [facility] [address] [place] [address], * HIV 1/2 Ag/Ab (08/22/2015 3:12 PM EDT) HIV 1/2 AB/AG NEG NEG [facility] Blood specimen (specimen) Blood / Unknown 08/22/2015 3:12 PM EDT Ana Armando MD LAB - BLOOD DRAW Final Result [address] [place] [address], [place] [phone] from Last 3 Months or Most Recently Relevant to Health Maintenance Insurance [facility] [place]ICARE - [place] Care Teams Accounting Auditor Relationship Specialty Start Date End Date PcpKatherine Needs [address] [place] [address] PCP - General 05/05/24
--- OUTSIDE RECORDS SUMMARY | 2025-01-28 13:44 | XMS_ITS | Encounter Summary ---
Author Organization [employer] [facility] Address [address] [place] [phone] Phone Care Team Providers Care Noc Technician Name Role Phone Ana Armando MD Primary Care Provider Encounter Details Date Type Department Care Team (Late st Contact Info) Description 05/31/2021 Transcribe Orders [facility] [address] [place] [address] Gladys Mobley [address] [place] [phone] [email or web address] Social History Tobacco Use Types Packs/Day Years [...] on filedocumented in this encounter Care Teams Noc Technician Relationship Specialty Start Date End Date Ana Armando MD [email or web address] PCP - General Family Medicine 10/16/17 documented as of this encounter Additional Source Comments The information contained in this document represents components of the legal health record. It is not the complete legal health record.[facility]
--- OUTSIDE RECORDS SUMMARY | 2025-01-28 13:44 | XMS_ITS | Encounter Summary ---
Author Organization [employer] Address [address] [place] [address] [address] [place] [address] Care Team Providers Care Fingerer Name Role Phone Elkin Sales MD Primary Care Provider [phone] Madai Swift MD Unavailable [phone] Lavinia Cagle TRIAL JUDGE Unavailable [phone] Whitney Jara EARTHMOVING LABOURER Unavailable [phone] Peter Linares RN Unavailable Isadora Mcnamara RN Unavailable [phone] Luis García RN Unavailable Unavailable Whitney Jara EARTHMOVING LABOURER Unavailable [phone] Reason for Visit * Reason Comments Med Refill Encounter Details Date Type Department Care Team (Late st Contact Info) Description 07/23/[address] [address] Elkin Sales MD [address] [place] [address] Chronic bilateral low back pain with bilateral [...] Telephone Encounter - Laurie Jacobsen CMA - 07/24/2024 8:32 AM EDT Rx cued up Refill data: Lab Results Component Value Date TSH 2.60 01/06/2023 HGBA1C 5.5 07/12/2024 HGBA1C 5.5 09/10/2023 HGBA1C 5.2 01/06/2023 CHOLESTEROL 249 (H) 07/12/2024 CHOLESTEROL 212 (H) 09/10/2023 CHOLESTEROL 230 (H) 01/06/2023 HDLCHOL 41 07/12/2024 HDLCHOL 34 (L) 09/10/2023 HDLCHOL 39 (L) 01/06/2023 LDLCHOL 186 (H) 07/12/2024 LDLCHOL 160 (H) 09/10/2023 LDLCHOL 169 (H) 01/06/2023 No results found for: HGB , HCT , POCINR , INR BP Readings from Last 3 Encounters: 07/12/24 102/70 09/08/23 110/80 01/01/23 100/72 Last onsite visit: Appointment Date: 07/19/2024 Appointment Type: Telemedicine Appointment Provider: ANGIE CAROLINA Appointment Department: [facility] Next visit: Appointment Date: 09/01/2024 Appointment Type: Telemedicine Appointment Provider: ELKIN SALES Appointment Department: [facility] documented in this encounter Plan of Treatment Not on file documented as of this encounter Goals Goal Patient Goal Type Associated Problems Recent Progress Patient-Stated? Author obtain housing in [facility] General Yes Ly Pal RN food assistance General Yes Ly Pal, KARY help with social security application General Yes Ly Pal, KARY obtain podiatry appt General Yes Ly Pal, KARY documented as of this encounter Visit Diagnoses Diagnosis Chronic bilateral low back pain with bilateral sciatica documented in this encounter Additional Health Concerns Assessment Noted Time PHQ-9 Depression Total Score: 18 024 1:14 PM EDT documented as of this encounter Care Teams Fingerer Relationship Specialty Start Date End Date Elkin Sales MD [address] [place] [address] PCP - General Family Medicine 02/13/24 Madai Swift MD [address] [place] [address] Family Physician Family Medicine 07/30/24 Lavinia Cagle CNP [address] [place] [address] Nurse Practitioner Family Medicine 07/30/24 Whitney Jara FNP [address] [place] [address] Family Physician Family Medicine 07/30/24 07/30/24 Peter Linares, KARY [address] [place] [address] Registered Nurse 07/30/24 Isadora Mcnamara, KARY [address] [place] [phone] Registered Nurse 07/30/24 Luis García, RN Registered Nurse Family Medicine 07/30/24 Whitney Jara FNP [address] [place] [address] Nurse Practitioner Family Medicine 07/30/24 documented as of this encounter
--- OUTSIDE RECORDS SUMMARY | 2025-01-28 13:44 | XMS_ITS | Data Portability ---
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 [email or web address] Not available 09/10/2018 18:31:40 Plan of Treatment Reminders Order Date Submit Date Provider Last Modified By Organization Details Last Modified Time Details Appointments None record ed. Lab None record ed. Referral None record ed. Procedures None record ed. Surgeries None record ed. Imaging None record ed. Medication Orders None record ed. Patient TargetsNo targets recorded. Patient Instructions Encounter Date Encounter Id Patient Instructions Last Modified By Organization Details Last Modified Time 09/10/2018 [id number] I reviewed all t he findings of this patient. I reviewed his radiographs in detail. I specifically asked him if he was noticing his high arch, increasing over time or if he was born with this foot type which has remained unchanged. 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 I explained that if it does appear to be progressive, I would be concerned about a neuromuscular disorder such as Igtjceh-Fkdta-Kpet h, and specifically because his father and his older brother both have a similar deformity and he states has put him in a wheelchair at this time If this is the case, and neurology evaluation would be helpful. If this is mechanical and structural disorder, I reviewed those treatment options as well. We discussed conservative measures including shoe modifications and orthoses which he states he tried at [facility] [place] last year without success. He feels that he is struggling with standing and normal activities at this point and failed conservative options and we therefore discussed a cavus foot reconstruction which is a very lengthy reconstruction which will take several months for recuperation. We discussed foot and ankle orthopedic surgeons at [facility] [place] and at [facility] who have experience with these types of reconstructions. All his questions were answered and he is going to followup in [place] for his reconstruction if his symptoms do not respond to his orthoses and shoe modifications. [email or web address] Not available 09/10/2018 18:38:26 Reason for Referral None Reported. Results Created Date Observation Date Name Description Value Unit Range Abnormal Flag Note LastModifiedBy Organization Detail LastModifiedTime 09/11/19 19 09/10/2018 XR, foot, 3 or more view [facility] Radiol [address], [address] Name: XAVIER PITTS [facility] : [id number] Date of Servic e: 1352 Acct Number : [id number] Order Number : [id number] Locati on: [facility] Report Number : [id number] Servic e: REG REF/ Reques ting Physic randy: Vineet Oropeza ul DPM Catego ry: ORTHOP EDIC RADIOL [facility] Exam: FOOT 3 VIEWS Left Access ion #: [id number] VH Signs/ Sympto ms: PAIN Report Status : Sig suzanne Examin ation: XR Left Foot, 3 views. Indica tion: PAIN Techni que: AP, obliqu e, latera l views of the Left foot were obtain ed. Weight bearin g views were obtain ed. Compar marla: None. Findin gs: No eviden ce for acute fractu re or disloc ation. Metata rsus primus varus. Remain ing joint spaces and alignm ent appear grossl y mainta ined. Soft tissue s appear unrema rkable . Impres caio: No acute fractu re or disloc ation is identi fied. Date/T magno of Dictat ion: 1608 Radiol ogy Reside nt (if applic able): Approv ed By Attend ing Radiol ogist: Deena Copeland 1608 Orderi ng physic randy: Hermila garcia Other provid ers: Hermila garcia, Hermila garcia, , Non Physic randy, , , [email or web address] [facility] (Radiology) [address] [place] [address], [id number], 09/10/2018 18:40:22 09/11/19 19 09/10/2018 XR, foot, 3 or more view [facility] Depart ment of Radiol ogy [address] [place] [address], [address] Name: XAVIER PITTS [facility] : 8230 Date of Servic e: 1352 Acct Number : [id number] Order Number : [id number] Locati on: [facility] Report Number : [id number] Servic e: REG REF/ Reques ting Physic randy: Vineet Oropeza ul DPM Catego ry: ORTHOP EDIC RADIOL [facility] Exam: FOOT 3 VIEWS Right Access ion #: [id number] VH Signs/ Sympto ms: PAIN Report Status : Sig suzanne Examin ation: XR Right Foot, 3 views. Indica tion: PAIN Techni que: AP, obliqu e, latera l views of the right foot, weight bearin g were obtain ed. Compar marla: None. Findin gs: No eviden ce for acute fractu re or disloc ation. Promin ent metata rsus primus varus with mild degene rative change s at the level of the first digit MTP joint. Remain ing osseou s struct ures appear intact . Few scatte red hammer toe deform ities primar raghav involv ing the second and third digits . Soft tissue s appear unrema rkable . Impres caio: No acute fractu re or disloc ation is identi fied. Degene rative change s as above. Date/T magno of Dictat ion: 1616 Radiol ogy Reside nt (if applic able): Approv ed By Attend ing Radiol ogist: Deena Copeland Y 1616 Orderi ng physic randy: Hermila garcia Other provid ers: Hermila garcia, Hermila garcia, , Non Physic randy, , , mona [facility] (Radiology) [address] [place] [address], [address], 09/10/2018 18:40:22 Result Notes Documentation Provider Name and Address Organization Details Recorded Time Xr, Foot, 3 Or More View : [facility] Department of Radiology [address] [place] [address], [address] Name: LEIDY CANNON : 89 Date of Service: 09/10/18 1352 Acct Number: [id number] Order Number: [id number] Location: [facility] Report Number: [id number] Service: REG REF/ Requesting Physician: Hermila Lopes DPM Category: ORTHOPEDIC RADIOLOGY [facility] Exam: FOOT 3 VIEWS Left Signs/Symptoms: PAIN Report Status: Signed Examination: XR Left Foot, 3 views. Indication: PAIN Technique: AP, oblique, lateral views of the Left foot were obtained. Weightbearing views were obtained. Comparison: None. Findings: No evidence for acute fracture or dislocation. Metatarsus primus varus. Remaining joint spaces and alignment appear grossly maintained. Soft tissues appear unremarkable. Impression: No acute fracture or dislocation is identified. Date/Time of Dictation: 09/10/18 160 Mortgage Branch Manager (if applicable): Approved By Attending Radiologist: Clay Temple 09/10/18 1608 Ordering physician: Hermila Lopes Other providers: Hermila Ortez, , Non Physician, , , HERMILA LOPES DPM [address], [phone], [facility] [place], [facility] 09/10/2018 18:40:22 Xr, Foot, 3 Or More View : [facility] Department of Radiology [address] [place] [address], [id number] Name: LEIDY CANNON : 89 Date of Service: 09/10/18 1352 Acct Number: [id number] Order Number: [id number] Location: [facility] Report Number: [id number] Service: REG REF/ Requesting Physician: Hermila Lopes DPM Category: ORTHOPEDIC RADIOLOGY [facility] Exam: FOOT 3 VIEWS Right Signs/Symptoms: PAIN Report Status: Signed Examination: XR Right Foot, 3 views. Indication: PAIN Technique: AP, oblique, lateral views of the right foot, weightbearing were obtained. Comparison: None. Findings: No evidence for acute fracture or dislocation. Prominent metatarsus primus varus with mild degenerative changes at the level of the first digit MTP joint. Remaining osseous structures appear intact. Few scattered hammertoe deformities primarily involving the second and third digits. Soft tissues appear unremarkable. Impression: No acute fracture or dislocation is identified. Degenerative changes as above. Date/Time of Dictation: 09/10/18 1616 Mortgage Branch Manager (if applicable): Approved By Attending Radiologist: Clay Temple 09/10/186 Ordering physician: Hermila Lopes Other providers: Hermila Ortez, , Non Physician, , , HERMILA LOPES DPM [address], [phone] [place] 09/10/2018 18:40:22 Problems No Known Problems Medical Equipment None Reported. Allergies No known drug allergies Medications Not known to be on any medication Vitals Date Recorded Body height Body mass index (BMI) Body weight Systolic And Diastolic Provider Name and Address Organization Details Last Updated DateTime 09/10/2018 177.8 cm 25.8 kg/m2 99118.63 g 123/62 mm[Hg] Valery Velazco [facility] 09/10/2018 15:06:39 Social History Question Answer Notes LastModified by Organizat ion Details LastModified Time Tobacco Smoking Status Never Smoker Valery gonzalez [facility] 09/10/2018 15:07:12 Marital Status Unknown Informatio n not available 09/10/2018 What Was The Date Of Your Most Recent Tobacco Screening? 09/10/2018 Information n ot available 11/19/2018 Sex: Unknown Functional Status Question Answer Note LastModified by Organization D etails LastModified Time What is your level of alcohol consumption? None Information not available 09/10/2018 Mental Status None recorded. Family History Nothing Reported. Medical History Condition Response Coronary Artery Disease N Dyslipidemia N Gout N Hernia N Artificial Joints N Thyroid Problems N Lung Disease N Pacemaker N Anemia N Edema N Back Pain N Deep Vein Thrombosis N Varicose Veins N Diabetes N Bleeding Disorder N Arthritis N Seizures/Epilepsy N Blood Clot N Tuberculosis N AIDS/HIV N [place] Bite N Cancer N Stroke N Asthma N Leg or Foot Ulcers N Raynaud's Disease N Substance Abuse N Peripheral Vascular Disease N Polio N Hepatitis N Liver Disease N Organ Transplant N Heart Disease N Rheumatoid Arthritis N Pulmonary Embolism N Headaches N Fibromyalgia N Foot Deformity N Dialysis N Hypertension N Osteoporosis N Kidney Disease N Past Encounters Encounter ID Performer Location Encounter Start Date Encounter Closed Date Diagnosis/Indication Diagnosis SNOMED-CT Code Diagnosis ICD10 Code Diagnosis IMO Codes Diagnosis Note [id number] HERMILA LOPES [facility]_ Office [address] [place] [phone] 09/10/2018 13:47:04 09/10/2018 15:18:40 Equinus contracture of the ankle 712688359 M24.571 M24.572 Pes cavus 629167369 Q66. 7 Pain in right foot 02199 72894 00110 M79.671 Pain in left foot 748942 3916 51138 M79.672 Health Concerns Section Related Observation LastModified by Organization Detai ls LastModified Time None Recorded Concern Status LastModified by Organization Details LastModified Time None Recorded Advance Directives Directive None Recorded Payers Insurance Date Sequence Insurance Name Policy Number Policy Miller Covered Member ID Miller Member ID Guarantor Name 09/10/2018 1 [facility] [employer] (EPO) [id number] Leidy Cannon [id number] Leidy Cannon 11/25/2018 2 [place] [facility] Leidy Cannon [id number] Leidy Cannon 11/25/2018 1 [facility] (POS) [id number] Leidy Cannon [id number] Leidy Cannon Notes Date Note Type Note Provider Name and Address Organization Details Recorded Time 09/10/2018 text/html Leidy she presents today with a chief complaint of pain in both feet which has been an ongoing issue since childhood but has been increasing gradually. He states that he was seen at [facility] by a foot and ankle orthopedic surgeon who had inserts made for his shoes which did not provide any relief, and was then told that he had very severe deformities of both feet and discuss surgery but could not guarantee the results and therefore Leidy held off on the surgery. He is here because his symptoms are increasing. He states his father and brother have similar deformities in his feet and his father was in a wheelchair at age 40 and his brother at age 38. He states his pain is 8 on the visual analog scale. HERMILA LOPES [address], [address], [facility], [facility] 09/10/2018 18:38:51
--- OUTSIDE RECORDS SUMMARY | 2025-01-28 13:44 | XMS_ITS | Clinical Summary ---
Author Organization [employer] [facility] Address [address] [place] [address] Phone Care Team Providers Care Wild Life Manager Name Role Phone Ana Armando MD Primary Care Provider [phone] Allergies No known active allergies Medications hydrOXYzine (VISTARIL) 25 MG capsule Take 1 capsule (25 mg total) by mouth 3 (three) times a day as needed for itching. 15 capsule 9 Active hydrocortisone 2.5 % cream Apply topically 2 (two) times a day. 20 g 9 Active amoxicillin (AMOXIL) 500 MG capsule TAKE 2 CAPSULES BY MOUTH 2 TIMES DAILY FOR 10 DAYS. 2 Active qoq-ocj-hnw-zhou -CM-xsm-cuf-branden (RINCINOL P.R.N.) Mwsh 5 mL by Mucous Membrane route 2 (two) times a day. 120 mL 2 2 Active fluticasone propionate (FLONASE) 50 mcg/actuation nasal spray Warren 1-2 sprays in saline mouth rinse to gargle twice a day. Correct. Please fill this as prescribed 15.8 mL 1 5 Active Active Problems Problem Noted Date Diagnosed Date Plantar fasciitis 01/19/2015 Overview (04/04/2015): Plantar fasciitis Aphthous ulcer of mouth 03/18/2014 Overview (06/17/2014): Oral aphthae Encounters Date Type Department Care Team Description 11/02/2024 Refill [facility] [address] [place] [address] Pop Costa MD Medication Refill from Last 3 Months Immunizations Immunization Administration Dates Next Due Hepatitis B 03/18/2014,10/13/2013,09/08/2013 Influenza Quadrivalent Preservative Free IM 12/28,03/18/2014 MMR 10/13/2013,09/08/2013 Td (adult),2 Lf Tetanus Toxo id, PF, Adsorbed 03/18/2014,10/13/2013 Tdap 09/08/2013 Varicella 12/14/2014,06/01/2014 Social History Tobacco Use Types Packs/Day Years Used Date Smoking Tobacco: Never Smokeless Tobacco: Never Tobacco Cessation:Counseling Given: Not Answered Education Answer Date Recorded Are you interested in more education? Not on daniel e 08/23/2022 Are you concerned about learning? Not on file 08/23/2022 No 08/23/2022 No 08/23/2022 Digital Access Answer Date Recorded No 09/23/2022 No 09/23/2022 No 09/23/2022 Reliable internet access at home? Not on file 09/23/2022 Device with a working camera? Not on file Sex and Gender Information Value Date Recorded Sex Assigned at Male 11/24/2021 12:45 AM EDT Legal Sex Male 1:42 PM EDT Gender Identity Male 11/24/2021 12:45 AM EDT Sexual Orientation Don't know 11/24/2021 12 :45 AM EDT Last Filed Vital Signs Vital Sign Reading Time Taken Comments Blood Pressure 124/76 09/19/2018 12:51 PM EDT Pulse 75 09/19/2018 12:51 PM EDT Temperature 36.4 C (97.5 F) 09/19/2018 12:51 PM EDT Respiratory Rate 18 09/19/2018 12:51 PM EDT Oxygen Saturation 99% 09/19/2018 12:51 PM EDT Inhaled Oxygen Concentration - - Weight 76.2 kg (168 lb) 06/05/2022 10:49 AM EST Height 177.8 cm (5' 10 ) 11/26/2021 2:48 PM EDT Body Mass Index 24.11 11/26/2021 2:48 PM EDT Plan of Treatment Health Maintenance Due Date Last Done Comments DEPRESSION SCREENING 1999 Adult Td,Tdap Booster 03/18/2024 03/18/2014 , 10/13/2013, 09/08/2013 INFLUENZA VACCINE (#1) 2024 8, 02/11/2017, 01/19/2015, Additional history exists COVID-19 VACCINE ( season) 2024 08/19/2020, 07/22/2020 LIPID PANEL 01/07/2028 01/06/2023, 10/27, 11/14/2021, Additional history exists HIV ONE-TIME SCREENING (18-65 YEARS) Completed 08/22/2015 HEPATITIS C SCREENING Completed 03/02/2018, 016 SMOKING STATUS SCREENING (Once After 26 Yrs) Completed 06/05/2022 HEPATITIS A VACCINES Aged Out No long er eligible based on patient's age to complete this topic HIB VACCINES Aged Out No longer eligi ble based on patient's age to complete this topic MENINGOCOCCAL VACCINES (ACWY) Aged Out No longer eligible based on patient's age to complete this topic MENINGOCOCCAL VACCINES (B) Aged Out N o longer eligible based on patient's age to complete this topic PNEUMOCOCCAL VACCINES (0-49 years) Aged Out No longer eligible based on patient's age to complete this topic Medical Devices Not on file Procedures Procedure Name Priority Date/Time Associated Diagnosis Comments LIPID PANEL Routine 11/14/2021 1:08 PM EDT HEPATITIS C ANTIBODY, QUALITATIVE Routine 08/22/2015 3:21 PM EDT from Last 3 Months or Most Recently Relevant to Health Maintenance Results * (ABNORMAL) Lipid panel (11/14/2021 1:08 PM EDT) HDL 29(L) >39 mg/dL [facility] CHOLESTEROL 194 0 - 200 mg/dL [facility] TRIGLYCERIDES 118 0 - 150 mg/dL [facility] LDL 141(H) <130 mg/dL [facility] Comment: REFERENCE RANGE: Adult >= 18 years: - Desirable: <100 - Above desirable: 100-129 - Borderline high: 130-159 - High: 160-189 - Very High: >=190 Pediatric 2-17 years: - Acceptable: <110 - Borderline high: 110-129 - High: >=130 Reference ranges have not been established for patients that are less than 24 months of age. CARDIAC RISK RATIO 6.7(H) <5 [facility] NON-HDL CHOLESTEROL 165 mg/dL [facility] Comment:Reference Range: The non-HDL Cholesterol value should not exceed the desired LDL-C by more than 30 mg/dl. 11/14/2021 1:08 PM EDT 11/14/2021 8:53 PM EDT Ana Armando MD LAB BLOOD ORDERABLES Final Res ult [address] [phone] * Hepatitis C antibody, qualitative (08/22/2015 3:21 PM EDT) HEP C ANTIBODY NEG NEG [facility] 08/22/2015 3:21 PM EDT 08/22/2015 8:03 PM EDT Ana Armando MD LAB BLOOD ORDERABLES Edited Re sult - Final Performing Organization Address City/[facility]/ZIP Co de Phone Number [address] from Last 3 Months or Most Recently Relevant to Health Maintenance Insurance [place] MEDIC[place] PART A & B Care Teams Wild Life Manager Relationship Specialty Start Date End Date Ana Armando MD [email or web address] PCP - General Family Medicine 10/16/17 Additional Source Comments The information contained in this document represents components of the legal health record. It is not the complete legal health record.[facility]
--- OUTSIDE RECORDS SUMMARY | 2025-01-28 13:44 | XMS_ITS | Encounter Summary ---
Author Organization [facility] Address [address] [place] [address] Phone Care Team Providers Care Internet Ecommerce Specialist Name Role Phone Ana Armando MD Primary Care Provider [phone] Encounter Details Date Type Department Care Team (Late st Contact Info) Description 10/02/2020 Transcribe Orders [facility] [address] [place] [address] Wyatt Monteiro [email or web address] Social History Tobacco Use [...] on filedocumented in this encounter Care Teams Internet Ecommerce Specialist Relationship Specialty Start Date End Date Ana Armando MD [email or web address] PCP - General Family Medicine 10/16/17 documented as of this encounter Additional Source Comments The information contained in this document represents components of the legal health record. It is not the complete legal health record.[facility]
--- OUTSIDE RECORDS SUMMARY | 2025-01-28 13:44 | XMS_ITS | Encounter Summary ---
Author Organization [employer] Address [address] [place] [address] [address] [place] [address] Care Team Providers Care Rock Dust Sprayer Name Role Phone Ana Armando MD Primary Care Provider [phone] Madai Swift MD Unavailable [phone] Lavinia Cagle CNP Unavailable [phone] Peter Linares RN Unavailable Isadora Mcnamara RN Unavailable [phone] Luis García RN Unavailable Unavailable EstefaniWhitney lagunas MATERIALS SCIENTIST Unavailable [phone] Reason for Visit * Reason Comments Med Refill Encounter Details Date Type Department Care Team (Late st Contact Info) Description 01/03/[address] [address] Ana Armando MD [address] [place] [address] Congenital pes cavus; Chronic pain syndrome Social History Tobacco Use Types Packs/Day Years [...] PM EST documented as of this encounter Plan of Treatment Not on file documented as of this encounter Goals Goal Patient Goal Type Associated Problems Recent Progress Patient-Stated? Author obtain housing in [facility] General Yes Ly Pal RN food assistance General Yes Ly Pal RN help with social security application General Yes Ly Pal RN obtain podiatry appt General Yes Ly Pal, RN documented as of this encounter Visit Diagnoses Diagnosis Congenital pes cavus Talipes cavus Chronic pain syndrome documented in this encounter Additional Health Concerns Assessment Noted Time PHQ-9 Depression Total Score: 18 024 1:14 PM EDT documented as of this encounter Care Teams Rock Dust Sprayer Relationship Specialty Start Date End Date Ana Armando MD [address] [place] [address] PCP - General Family Medicine 10/18/24 Madai Swift MD [address] [place] [address] Family Physician Family Medicine 07/30/24 Lavinia Cagle CNP [address] [place] [address] Nurse Practitioner Family Medicine 07/30/24 Peter Linares, KARY [address] [place] [address] Registered Nurse 07/30/24 Isadora Mcnamara, KARY [address] [place] [address] Registered Nurse 07/30/24 Luis García, RN Registered Nurse Family Medicine 07/30/24 Whitney Jara FNP [address] [place] [address] Nurse Practitioner Family Medicine 07/30/24 documented as of this encounter
--- OUTSIDE RECORDS SUMMARY | 2025-01-28 13:44 | XMS_ITS | Encounter Summary ---
Author Organization [facility] Address [address] [place] [address] Phone Care Team Providers Care Server Service Assistant Name Role Phone Ana Armando MD Primary Care Provider [phone] Encounter Details Date Type Department Care Team (Late st Contact Info) Description 07/22/2020 Ancillary Orders [facility] Diagnostic Radiology - [facility] [address] [place] [address] Ana Armando MD [address] [place] [phone] [email or web address] Acute bilateral low back pain with bilateral sciatica [...] on file documented as of this encounter Results * XR LUMBOSACRAL SPINE 2-3 VIEWS (07/22/2020 9:58 AM EDT) Anatomical Region Laterality Modality L-spine Radiographic Joana ging 07/22/2020 9:59 AM EDT Impressions 07/22/2020 10:00 AM EDT No acute osseous abnormalities. Narrative 07/22/2020 10:00 AM EDT PROCEDURE: XR LUMBOSACRAL SPINE 2-3 VIEWS 07/22/2020 9:51 AM INDICATIONS: Pain In Low Back; Midline acute back pain, pt has lower extremity disability that could be contributing to back pain.. COMPARISON: Correlation is made with CT abdomen and pelvis 01/30/2016 VIEWS: 2 FINDINGS: Alignment is anatomic. Lumbar lordosis is preserved. Vertebral body heights and intervertebral disc spaces are maintained. No acute fracture or subluxation. Soft tissues are unremarkable. Procedure Note Sarah Sanderson MD - 07/22/2020 PROCEDURE: XR LUMBOSACRAL SPINE 2-3 VIEWS 07/22/2020 9:51 AM INDICATIONS: Pain In Low Back; Midline acute back pain, pt has lowerextremity disability that could be contributing to back pain.. COMPARISON: Correlation is made with CT abdomen and pelvis 01/30/2016 VIEWS: 2 FINDINGS: Alignment is anatomic. Lumbar lordosis is preserved. Vertebral bodyheights and intervertebral disc spaces are maintained. No acute fractureor subluxation. Soft tissues are unremarkable. IMPRESSION: No acute osseous abnormalities. Ana Armando MD IMG XR SPINE Final Result documented in this encounter Visit Diagnoses Diagnosis Acute bilateral low back pain with bilateral sciatica Acute bilateral low back pain with bilateral sciatica documented in this encounter Care Teams Server Service Assistant Relationship Specialty Start Date End Date Ana Armando MD [email or web address] PCP - General Family Medicine 10/16/17 documented as of this encounter Additional Source Comments The information contained in this document represents components of the legal health record. It is not the complete legal health record.[facility]
--- OUTSIDE RECORDS SUMMARY | 2025-01-28 13:44 | XMS_ITS | Encounter Summary ---
Author Organization [employer] Address [address] [place] [address] [address] [place] [address] Care Team Providers Care Systematic Theology Professor Name Role Phone Ana Armando MD Primary Care Provider [phone] Madai Swift MD Unavailable [phone] Lavinia Cagle PIPE RECOVERY SPECIALIST Unavailable [phone] Whitney Jara VENETIAN BLIND WORKER Unavailable [phone] Peter Linares RN Unavailable Isadora Mcnamara RN Unavailable [phone] Luis García RN Unavailable Unavailable Whitney Jara VENETIAN BLIND WORKER Unavailable [phone] Reason for Visit * Reason Comments Med Refill Encounter Details Date Type Department Care Team (Late st Contact Info) Description 06/26/[address] [address] Ana Armando MD [address] [place] [phone] Chronic bilateral low back pain with bilateral sciatica Social History Tobacco Use Types Packs/Day Years Used Date Smoking Tobacco: Never Smokeless Tobacco: Never Alcohol Use Standard Drinks/Week Comments Never 0 (1 standard drink = 0.6 oz pur e alcohol) Depression Answer Date Recorded Patient Health Questionnaire-9 Score 0 03/10/2024 Patient Health Questionnaire-9 Score 0 03/10/2024 Last PHQ-9: Questionnaire Data 1 1 05/10/2023 Housing Stability Answer Date Recorded What is [...] Answer Date Recorded Patient Health Questionnaire-2 Score 0 03/10/2024 Internet Access Answer Date Recorded Internet Access [...] encounter Miscellaneous Notes * Telephone Encounter - Jamila Del Castillo MA - 06/26/2024 9:31 AM EST Rx not in pt chart please advise documented in this encounter Plan of Treatment Not on file documented as of this encounter Goals Goal Patient Goal Type Associated Problems Recent Progress Patient-Stated? Author obtain housing in [facility] General Yes Ly Pal, RN food assistance General Yes Ly Pal, RN [...] documented as of this encounter Care Teams Systematic Theology Professor Relationship Specialty Start Date End Date Ana Armando MD [address] [place] [phone] PCP - General Family Medicine 02/13/24 Madai Swift MD [address] [place] [phone] Family Physician Family Medicine 07/30/24 Lavinia Cagle CNP [address] [place] [phone] Nurse Practitioner Family Medicine 07/30/24 Whitney Jara FNP [address] [place] [address] Family Physician Family Medicine 07/30/24 07/30/24 Peter Linares, KARY [address] [place] [phone] Registered Nurse 07/30/24 Isadora Mcnamara, KARY [address] [place] [phone] Registered Nurse 07/30/24 Luis García, KARY Registered Nurse Family Medicine 07/30/24 Whitney Jara FNP [address] [place] [phone] Nurse Practitioner Family Medicine 07/30/24 documented as of this encounter
--- OUTSIDE RECORDS SUMMARY | 2025-01-28 13:45 | XMS_ITS | Clinical Summary ---
Author Organization [employer] Address [address] [facility] 7t [place] [address] Care Team Providers Care Validation Intern Name Role Phone Ana Armando MD Primary Care Provider [phone] Madai Swift MD Unavailable [phone] Lavinia Cagle SOLID WASTE MANAGER Unavailable [phone] Peter Linares RN Unavailable Isadora Mcnamara RN Unavailable [phone] Luis García RN Unavailable Unavailable EstefaniWhitney lagunas MEAT CUTTING TEACHER Unavailable [phone] Allergies No known active allergies Medications * This document contains information received from the source organization and may not represent a complete record from that organization. albuterol 108 (90 Base) MCG/ACT inhaler INHALE 2 PUFFS INTO THE LUNGS EVERY 4 TO 6 (FOUR TO SIX) HOURS 01/29/20 22 Active cyclobenzaprine (Flexeril) 5 MG tabletIndications :Chronic pain syndrome TAKE 1 TABLET BY MOUTH 3 TIMES A DAY FOR 10 DAYS 30 tablet 04/08/20 24 Active betamethasone, augmented, (Diprolene) 0.05 % lotion Apply topically 2 times daily. 60 mL 07/13/19 25 Active acetaminophen (Pain Relief Extra Strength) 500 MG tabletIndications :Chronic pain syndrome Take 1 tablet (500 mg) by mouth if needed in the morning, at noon, and at bedtime for mild pain. 30 tablet 07/13/19 25 Active FLUoxetine (PROzac) 20 MG capsuleIndication s:Current mild episode of major depressive disorder without prior episode (CMS/HCC) Take 1 capsule (20 mg) by mouth at bedtime. 90 capsule 3 09/02/19 25 Active ibuprofen 800 MG tabletIndications :Congenital pes cavus,Chronic pain syndrome Take 1 tablet (800 mg) by mouth 3 times daily. 90 tablet 3 09/02/19 25 Active gabapentin (Neurontin) 400 MG capsuleIndication s:Congenital pes cavus,Chronic pain syndrome TAKE 2 CAPSULES BY MOUTH AT BEDTIME 60 capsule 11 10/07/19 25 Active tamsulosin (Flomax) 0.4 MG 24 hr capsuleIndication s:Benign localized prostatic hyperplasia with lower urinary tract symptoms (LUTS) TAKE 1 CAPSULE BY MOUTH EVERY DAY 90 capsule 1 10/09/19 25 Active fexofenadine (Genevieve) 180 MG tabletIndications :Nasal congestion Take 1 tablet (180 mg) by mouth if needed each day (Allergies). 90 tablet 1 10/28/19 25 Active minoxidil (Loniten) 2.5 MG tablet Take 2.5 mg by mouth in the morning. 11/15/19 25 Active traZODone (Desyrel) 100 MG tabletIndications :Primary insomnia TAKE 1 TABLET BY MOUTH EVERYDAY AT BEDTIME 90 tablet 1 01/05/20 25 Active scopolamine (Transderm-Scop) 1 MG/3DAYS patch 72 hourIndications:[address]arrish [address] Place 1 patch on the skin every 3rd (third) day. 10 patch 01/27/20 25 025 Active meclizine (Antivert) 25 MG tabletIndications :Vertigo Take 1 tablet (25 mg) by mouth if needed in the morning, at noon, and at bedtime for dizziness for up to 10 days. 30 tablet 01/27/20 25 025 Active ondansetron ODT (Zofran-ODT) 8 MG disintegrating tabletIndications :Nausea Take 1 tablet (8 mg) by mouth every 8 (eight) hours if needed for nausea or vomiting. 30 tablet 2 01/27/20 25 Active traZODone (Desyrel) 100 MG tabletIndications :Primary insomnia TAKE 1 TABLET BY MOUTH EVERYDAY AT BEDTIME 90 tablet 1 06/07/19 25 025 Discontinued Active Problems Problem Noted Date Diagnosed Date Frequent falls 10/27/2024 Assessment & Plan (01/26/2025 11:29 AM EDT): Orders: CT Head w/o Contrast; Future Assessment & Plan (12/01/2024 11:33 AM EDT): Assessment & Plan (10/27/2024 6:20 PM EDT): Due to his congential foot deformity. He will need support with home safety Orders: [facility] Referral to RN Care Management; Future Difficulty with activities of daily living 10/27 Assessment & Plan (12/01/2024 11:33 AM EDT): He has supplies and mobility devices. Assessment & Plan (10/27/2024 6:20 PM EDT): Chronic pain syndrome 09/08/2023 Assessment & Plan (12/01/2024 11:33 AM EDT): Chronic pain due to a progressive foot disorder, he has seen multiple specialists. He is waiting to hear back from a color shop helper at . I encouraged him to call He is dependant on mobility devices currently. I will follow him closely. Assessment & Plan (10/27/2024 6:20 PM EDT): Uncontrolled pain in the feet, he has declined opioids - I agree. He has seen surgeon who have recommended complex surgery but the patient is nervous and has declined I have encouraged him to consider the surgery Orders: [facility], [facility] Referral to Community Health Worker (CHW) [facility] Referral to RN Care Management; Future Primary insomnia 05/17/2022 Food insecurity 05/08/2021 Assessment & Plan (10/27/2024 6:20 PM EDT): He and his family rely on his income from SSDI Orders: [facility], [facility] Referral to Community Health Worker (CHW) [facility] Referral to RN Care Management; Future Inadequate housing 05/08/2021 Overview (05/17/2022): I explained to the patient that the [facility] is a non- profit agency that has committed to helping [facility] patients with problems related to housing, food, and unemployment benefits. They can serve patients in [place] or [place]. I asked permission to release the patient s name, address, and phone number to the [facility] using their on-line submission form. [email or web address] The patient agreed with this release of their information: YES Last Assessment & Plan: I explained to the patient that the [facility] is a non- profit agency that has committed to helping [facility] patients with problems related to housing, food, and unemployment benefits. They can serve patients in [place] or [place]. I asked permission to release the patient s name, address, and phone number to the [facility] using their on-line submission form. [email or web address] The patient agreed with this release of their information: YES Assessment & Plan (10/27/2024 6:20 PM EDT): He and his family rely on his income from SSDI They are at risk of losing housing. Orders: [facility] Referral to Community Health Worker (CHW) [facility] Referral to RN Care Management; Future HLD (hyperlipidemia) 07/31/2020 Overview (05/17/2022): Lab Results Component Value Date TRIGLYC 118 10/02/2020 CHOL 227 (H) 10/02/2020 HDL 30 (L) 10/02/2020 LDL 173 (H) 10/02/2020 NONHDL 197 10/02/2020 Last Assessment & Plan: Improving with life style. No need for statin Will repeat in 1 year Chronic bilateral low back pain with bilateral s ciatica 06/28/2020 Overview (05/17/2022): 08/16/2020: xray was neg 06/28/2020: acute onset, disabiling him Last Assessment & Plan: Ongoing back pain. xray was neg Suspect musclar pain Encouraged the pt do do some core exercises. 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 Would like to discuss with Uzbek speaking therapist Last Assessment & Plan: Stable. Does not want meds. delcined BH for now. No SI Or HI Premature ejaculation 04/29/2018 Overview (05/17/2022): 04/29/2018: start SSRI Recurrent tonsillitis 09/16/2016 Overview (05/17/2022): Last Assessment & Plan: worseing issue, he is resistent to seeing ENT Will treat with amoxi Congenital pes cavus 08/22/2015 Overview (05/17/2022): Podiatry: Dr Vicente Chairez Rec[facility] custom orthotics, consider surgical intervention if pain is severe Last Assessment & Plan: Reviewed podiatry rec's including wearing orthotics most of the time while wearing supportive shoes Discussed considerations for surgical intervention, this presents significant stress and is interested in therapy to discuss further. Referral placed for yoruba speaking therapost 12/15/2019 can no longer maintain gainful employment. Considering SSDI 08/09/2019: seeing ortho at [facility], they recommend surgery. Patient is very hesitant [...] consider surgical intervention if pain is severe Last Assessment & Plan: Worsening foot pain due to congentical high arches, he cannto work nor function normally at home. He is seeking second opinion by ortho I wll refer to [facility] ortho. [facility] to be seen by pedi ortho for this condition Assessment & Plan (12/01/2024 11:33 AM EDT): Assessment & Plan (10/27/2024 6:20 PM EDT): Uncontrolled pain in the feet, he has declined opioids - I agree. 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 07/12/2024 Encounters Date Type Department Care Team Description 01/26/2025 9:40 AM EDT [address] [address] Ana Armando MD Vertigo (Primary Dx); Frequent falls; Sudden onset of severe headache; Nausea 01/26/[address] [address] Ana Armando MD Care Coordination 01/03/[address] [address] Ana Armando MD Congenital pes cavus; Chronic pain syndrome 01/01/[address] [address] Ana Armando MD Primary insomnia 12/17/[address] [address] Ana Armando MD Referral 12/15/2024 3:30 PM EDT Telemedicine [address] [address] Ly Pal RN Complex care coordination 12/15/[address] [address] Ly Pal, RN PT referral faxed to [place] 12/02/[address] [address] Ana Armando MD Referral 12/01/2024 10:00 AM EDT Telemedicine [address] [address] Ana Armando MD Chronic pain syndrome (Primary Dx); Congenital pes cavus; Difficulty with activities of daily living; Frequent falls 11/10/2024 1:30 PM EDT Telemedicine [address] [address] Isadora Antonio RN Chronic pain syndrome 11/04/2024 1:00 PM EDT Telemedicine [address] [address] Isadora Antonio, digital imaging technician pain syndrome; Congenital pes cavus; Frequent falls 11/04/[address] [address] Deedee Hernandez CHW from Last 3 Months Immunizations Immunization Administration Dates Next Due Hep B, Adolescent or Pediatric 03/18/2014,2013,09/08/2013 Hep B, Dialysis 03/18/2014,10/13/2013,09/08/2013 Hep B, adult 03/18/2014,10/13/2013,09/08/2013 Influenza Injectable Quadriv alant Preservative Free IIV4 MDCK 04/22/2018 Influenza injectable quadriv alent preservative free 01/19/2015,03/18/2014 Influenza, IIV3, injectable 02/11/2017, 5 MMR 10/13/2013,10/13/2013,09/08/2013 TD (adult), 2 Lf tetanus tox oid, preservative free, adsorbed 03/18/2014,10/13/2013 Tdap 12/08/2023,09/08/2013 Varicella 12/14/2014,09/13/2014,06/01/2014 Social History Tobacco Use Types Packs/Day Years Used Date Smoking Tobacco: Never Smokeless Tobacco: Never Tobacco Cessation:Counseling Given: Not Answered Alcohol Use Standard Drinks/Week Comments Never 0 [...] Orientation Straight 05/15/2022 2: 26 PM EST Last Filed Vital Signs Vital Sign Reading Time Taken Comments Blood Pressure 102/70 07/12/2024 11:26 AM EDT Pulse 82 07/12/2024 11:26 AM EDT Temperature - - Respiratory Rate - - Oxygen Saturation 98% 07/12/2024 11:26 AM EDT Inhaled Oxygen Concentration - - Weight 76.2 kg (168 lb) 07/12/2024 11:26 AM EDT Height - - Body Mass Index - - Plan of Treatment Health Maintenance Due Date Last Done Comments HPV Vaccines (1 - Male 3-dose series) 07/17/2002 COVID-19 Vaccine ( season) 2024 05/09/2021, 08/19/2020, 07/22/2020 Influenza Vaccine (#1) 2024 8, 02/11/2017, 01/19/2015, Additional history exists Depression Monitoring 02/24/2025 08/25/2024, 025 SDOH Screening 03/10/2025 03/10/2024 Alcohol/Substance Use Screening 07/12/2025 07/12/2024 Tobacco Screening 07/12/2025 07/12/2024 Disability Screening 08/25/2025 08/25/2024 Family Planning (PISQ) 10/27/2025 10/27/2024 Lipid Panel 07/12/2029 07/12/2024, 08/26, 01/06/2023 DTaP/Tdap/Td Vaccines (5 - Td or Tdap) 12/07/2033 12/08/2023, 03/18/2014, 10/13/2013, Additional history exists Zoster Vaccines (1 of 2) 07/17/2037 RSV Patients and Patients Aged 60 years or older (1 - 1-dose 75+ series) 07/17/2062 Hepatitis B Vaccines Completed 03/18/2014, 03/18/2014, 03/18/2014, Additional history exists HIV Screening Completed 09/10/2023 Hepatitis C Screening Completed 09/10/2023, 018 HIB Vaccines Aged Out No longer eligi ble based on patient's age to complete this topic Hepatitis A Vaccines Aged Out No long er eligible based on patient's age to complete this topic IPV Vaccines Aged Out No longer eligi ble based on patient's age to complete this topic Meningococcal B Vaccine Aged Out No l onger eligible based on patient's age to complete this topic Meningococcal Vaccine Aged Out No josue davis eligible based on patient's age to complete this topic Pneumococcal Vaccine: Pediatrics (0 to 5 Years) and At-Risk Patients (6 to 49) Years Aged Out No longer eligible based on patient's age to complete this topic RSV under 20 months Aged Out No longe r eligible based on patient's age to complete this topic Rotavirus Vaccines Aged Out No longer eligible based on patient's age to complete this topic Goals Goal Patient Goal Type Associated Problems Recent Progress Patient-Stated? Author obtain housing in [facility] General Yes Ly Pal RN food assistance General Yes Ly Pal, KARY help with social security application General Yes Ly Pal, KARY obtain podiatry appt General Yes Ly Pal RN Procedures Procedure Name Priority Date/Time Associated Diagnosis Comments LIPID PANEL, STANDARD Routine 07/12/2024 12:29 PM EDT Mixed hyperlipidemia HEPATITIS C AB W/REFL TO HCV RNA, QN, PCR Routine 09/10/2023 11:25 AM EDT Routine screening for STI (sexually transmitted infection) HIV 1/2 ANTIGEN/ANTIBODY, FOURTH GENERATION W/RFL Routine 09/10/2023 11:25 AM EDT Routine screening for STI (sexually transmitted infection) from Last 3 Months or Most Recently Relevant to Health Maintenance Results * (ABNORMAL) Lipid Panel, Standard (07/12/2024 12:29 PM EDT) Pathologist [facility] Cholesterol, Total 249(H) <200 mg/dL [facility] HDL Cholesterol 41 > OR = 40 mg/dL [facility] Triglycerides 101 <150 mg/dL [facility] LDL Cholesterol 186(H) mg/dL [facility] Comment: Reference range: <100 Desirable range <100 mg/dL for primary prevention; <70 mg/dL for patients with CHD or diabetic patients with > or = 2 CHD risk factors. LDL-C is now calculated using the Sera calculation, which is a validated novel method providing better accuracy than the Friedewald equation in the estimation of LDL-C. Jameel SS et al. ERNIE. 2013;310(19): 0360-0446 (http://education.Squee/faq/GMI363) Chol/HDLC Ratio 6.1(H) <5.0 (calc) [facility] Non-HDL Cholesterol 208(H) <130 mg/dL [facility] Comment: For patients with diabetes plus 1 major ASCVD risk factor, treating to a non-HDL-C goal of <100 mg/dL (LDL-C of <70 mg/dL) is considered a therapeutic option. Blood Venous blood specimen / Unknown 07/12/2024 12:29 PM EDT 07/12/2024 12:29 PM EDT Narrative [facility] - 07/13/2024 5:19 AM EDT FASTING:YES FASTING: YES us Ana Armando MD LAB BLOOD ORDERABLES Final Res ult [facility] [address], [place] [address] [facility] [address] [place] [address] * Hepatitis C Antibody with Reflex to HCV, RNA, Quantitative, Real-Time PCR (09/10/2023 11:25 AM EDT) Pathologist [facility] Hepatitis C Antibody NON-REACT DANIA NON-REACT DANIA [facility] Comment: HCV antibody was non-reactive. There is no laboratory evidence of HCV infection. In most cases, no further action is required. However, if recent HCV exposure is suspected, a test for HCV RNA (test code 84965) is suggested. For additional information please refer to http://SportsBlogs.SpotRight/faq/OQQ04c3 (This link is being provided for informational/ educational purposes only.) Blood Venous blood specimen / Unknown 09/10/2023 11:25 AM EDT 09/10/2023 11:26 AM EDT Narrative [facility] - 09/11/2023 4:20 AM EDT FASTING:NO FASTING: NO us Ana Armando MD LAB BLOOD ORDERABLES Final Res ult [facility] [address], [place] [address] [facility] [address] [place] [address] * HIV-1/2 Ag and Ab with Reflexes (09/10/2023 11:25 AM EDT) HIV Antigen/Antibody, 4th Generation NON-REAC TIVE NON-REAC TIVE [facility] Comment: HIV-1 antigen and HIV-1/HIV-2 antibodies were not detected. There is no laboratory evidence of HIV infection. PLEASE NOTE: This information has been disclosed to you from records whose confidentiality may be protected by state law. If your state requires such protection, then the state law prohibits you from making any further disclosure of the information without the specific written consent of the person to whom it pertains, or as otherwise permitted by law. A general authorization for the release of medical or other information is NOT sufficient for this purpose. For additional information please refer to http://SportsBlogs.SpotRight/faq/OVE072 (This link is being provided for informational/ educational purposes only.) The performance of this assay has not been clinically validated in patients less than 2 years old. Blood Venous blood specimen / Unknown 09/10/2023 11:25 AM EDT 09/10/2023 11:26 AM EDT Narrative [facility] - 09/11/2023 4:20 AM EDT FASTING:NO FASTING: NO Ana Armando MD LAB BLOOD ORDERABLES Final Res ult [facility] [address], [place] [address] [facility] [address] [place] [address] from Last 3 Months or Most Recently Relevant to Health Maintenance Insurance STANDARD [place] [address] [place] [id number] Care Teams Validation Intern Relationship Specialty Start Date End Date Ana Armando MD [address] [place] [address] PCP - General Family Medicine 02/13/24 Madai Swift MD [address] [place] [address] Family Physician Family Medicine 07/30/24 Lavinia Cagle CNP [address] [place] [address] Nurse Practitioner Family Medicine 07/30/24 Peter Linares, KARY [address] [place] [address] Registered Nurse 07/30/24 Isadora Mcnamara, KARY [address] [place] [address] Registered Nurse 07/30/24 Luis García, RN Registered Nurse Family Medicine 07/30/24 Whitney Jara FNP [address] [place] [address] Nurse Practitioner Family Medicine 07/30/24
--- OUTSIDE RECORDS SUMMARY | 2025-01-28 13:45 | XMS_ITS | Encounter Summary ---
Author Organization [employer] Address [address] [place] [address] 7 [place] [address] Care Team Providers Care Rf Design Engineer Name Role Phone Ana Armando MD Primary Care Provider [phone] Madai Swift MD Unavailable [phone] Lavinia Cagle CNP Unavailable [phone] Peter Linares RN Unavailable Isadora Mcnamara RN Unavailable [phone] Luis García RN Unavailable Unavailable EstefaniWhitney lagunas PUBLICITY EXPERT Unavailable [phone] Reason for Visit * Reason Onset Date Comments Care Coordination 01/26/2025 Encounter Details Date Type Department Care Team (Late st Contact Info) Description 01/26/[address] [address] Ana Armando MD [address] [place] [address] Care Coordination Social History Tobacco Use Types Packs/Day Years [...] Encounter - Jamila Del Castillo MA - 01/26/2025 2:[address] order faxed to [facility] [place] [address] [place] [address], [address] [place] [phone] documented in this encounter Plan of Treatment Not on file documented as of this encounter Goals Goal Patient Goal Type Associated Problems Recent Progress Patient-Stated? Author obtain housing in [facility] General Yes Ly Pal, RN food assistance General Yes Ly Pal, RN help with social security application General Yes Ly Pal, KARY obtain podiatry appt General Yes Ly Pal, RN documented as of this encounter Visit Diagnoses Not on filedocumented in this encounter Additional Health Concerns Assessment Noted Time PHQ-9 Depression Total Score: 18 024 1:14 PM EDT documented as of this encounter Care Teams Rf Design Engineer Relationship Specialty Start Date End Date Ana Armando MD [address] [place] [address] PCP - General Family Medicine 02/13/24 Madai Swift MD [address] [place] [address] Family Physician Family Medicine 07/30/24 Lavinia Cagle CNP [address] [place] [address] Nurse Practitioner Family Medicine 07/30/24 Peter Linares, KARY [address] [place] [address] Registered Nurse 07/30/24 Isadora Mcnamara, KARY [address] [place] [address] Registered Nurse 07/30/24 Luis García, RN Registered Nurse Family Medicine 07/30/24 Whitney Jara FNP [address] [place] [address] Nurse Practitioner Family Medicine 07/30/24 documented as of this encounter
--- OUTSIDE RECORDS SUMMARY | 2025-01-28 13:45 | XMS_ITS | Encounter Summary ---
Author Organization [employer] Address [address] [facility] 7t [place] [address] Care Team Providers Care Quality Assurance Specialist Name Role Phone Ana Armando MD Primary Care Provider [phone] Madai Swift MD Unavailable [phone] Lavinia Cagle RN [facility] Unavailable [phone] Peter Linares RN Unavailable Isadora Mcnamara RN Unavailable [phone] Luis García RN Unavailable Unavailable EstefaniWhitney STEEL FINISHER Unavailable [phone] Reason for Visit * Reason Comments Med Refill Encounter Details Date Type Department Care Team (Late st Contact Info) Description 10/27/[address] [address] Flory Saldivar, INES [address] [place] [address] Chronic bilateral low back pain with bilateral [...] encounter Miscellaneous Notes * Telephone Encounter - Kiara Augustin PA-C - 10/27/2024 5:31 PM EDT Usually a 5 day prednisone prescription is intended as a short term course and usually not meant cherri refilled unless symptoms persist after 5 days. I would say no refill at this time and if patient is currently symptomatic we could reassess via telehealth. Per chart patient was seen today for other complaint. Kiara Augustin PA-C * Telephone Encounter - Ella Jacobsen MA - 10/27/2024 10:56 AM EDT Rx unable to locate in patients chart, please advise. documented in this encounter Plan of Treatment Not on file documented as of this encounter Goals Goal Patient Goal Type Associated Problems Recent Progress Patient-Stated? Author obtain housing in [facility] General Yes Ly Pal, RN food assistance [...] documented as of this encounter Care Teams Quality Assurance Specialist Relationship Specialty Start Date End Date Ana Armando MD [address] [place] [address] PCP - General Family Medicine 02/13/24 Madai Swift MD [address] [place] [address] Family Physician Family Medicine 07/30/24 Lavinia Cagle CNP [address] [place] [address] Nurse Practitioner Family Medicine 07/30/24 Peter Linares, KARY [address] [place] [address] Registered Nurse 07/30/24 Isadora Mcnamara, KARY [address] [place] [address] Registered Nurse 07/30/24 Luis Garcaí, RN Registered Nurse Family Medicine 07/30/24 Whitney Jara FNP [address] [place] [address] Nurse Practitioner Family Medicine 07/30/24 documented as of this encounter
--- OUTSIDE RECORDS SUMMARY | 2025-01-28 13:45 | XMS_ITS | Encounter Summary ---
Author Organization [facility] Address [address] [place] [id number] Phone Care Team Providers Care Steam Box Operator Name Role Phone Ana Armando MD Primary Care Provider [phone] Reason for Visit * Reason Comments Medication Refill Encounter Details Date Type Department Care Team ([facility] st Contact Info) Description 11/02/2024 Refill [facility] [address] [facility] [address] [place] [address] Pop Costa MD [address] [facility] [address] [place] [address] [email or web address] Medication Refill Social History Tobacco Use Types Packs/Day Years Used Date Smoking Tobacco: Never Smokeless Tobacco: Never Education Answer Date Recorded Are you interested [...] on filedocumented in this encounter Care Teams Steam Box Operator Relationship Specialty Start Date End Date Ana Armando MD [email or web address] PCP - General Family Medicine 10/16/17 documented as of this encounter Additional Source Comments The information contained in this document represents components of the legal health record. It is not the complete legal health record.[facility]
[2025-01-28 14:49] VITALS: BP 108/78; PULSE 69; O2SAT 95
[2025-01-28 16:05] VITALS: BP 108/78; PULSE 69; RESP 16; TEMP 37.1; O2SAT 95
== END 2025-01-28 16:06 | disposition home or self-care (01) ==
PROVIDERS: Registered Nurse Emergency; Emergency Provider Emergency Medicine
DX: H81.10 Benign paroxysmal vertigo, unspecified ear (principal); R51.9 Headache, unspecified; H55.00 Unspecified nystagmus; Z51.81 Encounter for therapeutic drug level monitoring; Z79.899 Other long term (current) drug therapy
CPT/HCPCS: 36415; 70450; 80053; 81001; 83735; 84484; 85025; 85610; 93005; 97161; 99284; 99285

== ENCOUNTER → 2025-01-28 10:46 | Outpatient (BNV) | payer MEDICARE, MEDICAID, SELFPAY | PROVIDERS: Emergency Provider Emergency Medicine; Visit Provider Radiology Diagnostic Radiology | DX: R51.9 Headache, unspecified (principal); R42 Dizziness and giddiness | CPT/HCPCS: 70450 ==

== ENCOUNTER → 2025-01-28 10:46 | Outpatient (BNV) | payer MEDICARE, MEDICAID, SELFPAY | PROVIDERS: Emergency Provider Emergency Medicine; Visit Provider Internal Medicine | DX: R55 Syncope and collapse (principal) | CPT/HCPCS: 93010 ==

== ENCOUNTER 2025-01-31 10:34 | Outpatient (RCR) | payer MEDICARE, MEDICAID, SELFPAY ==
--- NOTE | 2025-02-28 15:39 | MHC.PT.DC ---
[facility] [place] Office [place] Office [place] Office [address] Shahana Ryder [address] [phone] F: [phone] F: [phone] F: [phone] F: [phone] Physical Therapy Discharge Report Diagnosis: VERTIGO Date of Surgery: NA Date of Evaluation: 01/31/25 Date of Discharge: 02/28/25 Treatments to Date: 1 Cancellations to Date: No Shows to Date: Discharge Status: Improved Function Patient Elected to Stop Discharge Summary: Pt SEEN FOR INIT EVAL ONLY. PER THAT ASSESSMENT Pt IS 39 YO M TO PT WITH VERTIGO WHICH RECENTLY STARTED. WAS SEEN IN ER ON FRIDAY (TODAY IS FRIDAY) WITH +BPPV POST CANAL ON L. PRESENTS TODAY WITH NEG POST CANAL BPPV AND NEG HORIZ CANAL BPPV, NEG ORTHOSTATIC HYPOTENSION. FOUND TO HAVE NOTED EYE CATCH UP WITH SMMOTH PURSUIT IN ALL DIRECTIONS (HORIZ, VERT, DIAGONAL). 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 REPORTS HE IS BACK TO WORK Electronically signed by: RUBA DAN PT Please sign and return to therapist. Thank you for your referral.
== END 2025-02-28 15:39 | disposition home or self-care (01) ==
LOC: HO.PT 10:34
PROVIDERS: PCP Family Medicine; Visit Provider Emergency Medicine
DX: R42 Dizziness and giddiness (principal)
CPT/HCPCS: 97110; 97162